=== PATIENT | female | born 1980 ===

== ENCOUNTER → 2020-04-02 14:29 | Outpatient (BNVA) | payer OTHER, SELFPAY | PROVIDERS: PCP Internal Medicine; Referring Provider Internal Medicine; Visit Provider Urology | DX: R31.29 Other microscopic hematuria (principal) | CPT/HCPCS: 81002; 99212 ==

== ENCOUNTER 2020-11-18 11:50 | Outpatient (REF) | payer OTHER, SELFPAY ==
--- NOTE | ~2020-11-18 | XR_ITS ---
EXAMINATION: LEFT FOOT AND RIGHT FINGERS CLINICAL INFORMATION: Pain. COMPARISON: None TECHNIQUE: Left foot 3 views. Right finger 3 views. FINDINGS: Left foot: There is no visible acute fracture, dislocation or subluxation seen. The ankle mortise and subtalar joints are normal. Right fingers: There is no visible acute fracture, dislocation or soft tissue amount. Visualized bone and the joint spaces are maintained normal. Especially there is no abnormality involving the fourth digit. XR/XR foot LT min 3V IMPRESSION: Unremarkable right hand/fourth digit. Unremarkable left foot exam.
--- NOTE | ~2020-11-18 | XR_ITS ---
EXAMINATION: LEFT FOOT AND RIGHT FINGERS CLINICAL INFORMATION: Pain. COMPARISON: None TECHNIQUE: Left foot 3 views. Right finger 3 views. FINDINGS: Left foot: There is no visible acute fracture, dislocation or subluxation seen. The ankle mortise and subtalar joints are normal. Right fingers: There is no visible acute fracture, dislocation or soft tissue amount. Visualized bone and the joint spaces are maintained normal. Especially there is no abnormality involving the fourth digit. XR/XR finger RT min 2V IMPRESSION: Unremarkable right hand/fourth digit. Unremarkable left foot exam.
== END 2020-11-18 11:51 | disposition home or self-care (01) ==
LOC: HO.HMGCX 11:50
PROVIDERS: PCP Internal Medicine; Visit Provider Hospitalist
DX: M79.644 Pain in right finger(s) (principal); M79.672 Pain in left foot
CPT/HCPCS: 73140; 73630

== ENCOUNTER 2020-12-31 07:04 | Emergency (ER) | payer OTHER, SELFPAY ==
--- NOTE | ~2020-12-31 | XR_ITS ---
EXAMINATION: XR CHEST CLINICAL INFORMATION: Chest pain COMPARISON: Chest radiographs 06/02/2018 TECHNIQUE: Portable upright AP view of the chest was obtained. FINDINGS: The lungs are clear. There is no pneumothorax, airspace consolidation or pleural reaction. The costophrenic sulci are well-defined. The heart is normal in size. The hilar and mediastinal contours are normal. There is a gentle levocurvature lower thoracic spine similar to prior study. XR/XR chest 1V IMPRESSION: Unremarkable examination.
[2020-12-31 07:26] VITALS: BP 95/54; PULSE 60; RESP 18; TEMP 35.9; O2SAT 98; BMI 27.1
--- NOTE | 2020-12-31 08:20 | ED_ITS ---
HPI - Back Pain/Injury General Chief Complaint: Back Pain/Injury Stated Complaint: low back pain Time Seen by Provider: 12/31/20 08:16 History of Present Illness HPI Narrative: This is a 60 years old female presented to the emergency department with complaining of upper back pain intermittently for a month she states the pain got worse when she takes a deep breath, denies any injury denies any other systemic symptoms such as diaphoresis fever nausea vomiting. MD elicited complaint: back pain Pertinent past history: prior back pain Onset (ago): month(s) (1 month) Timing: constant Severity: moderate Quality: burning and sharp Location: thoracic spine Radiation: none Exacerbating factors: none Relieving factors: none Associated symptoms: denies other symptoms Work related injury: No Related Data Home Medications Medication Instructions Recorded Confirmed gabapentin 100 mg capsule 100 mg PO TID 04/02/20 11/18/20 lorazepam 1 mg tablet 1 mg PO BID 04/02/20 11/18/20 norethindrone (contraceptive) 0.35 mg PO 04/02/20 11/18/20 mg tablet topiramate 25 mg tablet 25 mg PO BID 04/02/20 11/18/20 Previous Rx's Medication Instructions Recorded amoxicillin 875 mg-potassium 1 tab PO BID #20 tab 09/09/20 clavulanate 125 mg tablet (Augmentin) famotidine 20 mg tablet (Pepcid) 20 mg PO BID #20 tab 12/31/20 naproxen 500 mg tablet (Naprosyn) 500 mg PO BID PRN #20 tab 12/31/20 Allergies Allergy/AdvReac Type Severity Reaction Status Date / Time No Known Allergies Allergy Unverified 11/18/20 11:41 [No Known Allergies*] Review of Systems Review of Systems: Yes all other systems are reviewed and are negative Constitutional: Constitutional: Reports no additional constitutional complaints Cardiovascular: Cardiovascular: Denies chest pain, Denies chest pain at rest and Denies chest pain with activity Respiratory: Respiratory: Reports no additional respiratory complaints Musculoskeletal: Musculoskeletal: Reports no additional musculoskeletal co mplaints Neurologic: Reports system reviewed and no additional complaints, except as documented PMFSH Past Medical History Attestation statement: The following information was validated with the patient. Social History Social History Alcohol intake: never Smoked in Last 30 Days: No Use of substances other than those prescribed or required for medical reasons: No Advance Directives: No Advance Directives Information Provided: No Patient : No service: No Current occupational status: employed Current occupation: [employer] Physical Exam Vital Signs: Vital Signs: Last Vital Signs Temp 96.6 F L 12/31/20 07:26 Pulse 60 12/31/20 07:26 Resp 18 12/31/20 07:26 BP 95/54 L 12/31/20 07:26 Pulse Ox 98 12/31/20 07:26 Body Mass Index 27.1 Const: Other: Patient looks well and she is not in distress he is sitting in the stretcher General: cooperative Nutritional Appearance: average body habitus Orientation/consciousness: oriented to person, oriented to place, oriented to time and patient oriented x3 Limitations: no limitations HENMT: Head: Yes normal to inspection Ears: hearing grossly normal bilaterally General nose exam: Normal external nose present Face and sinus: Yes normal facial exam Mouth: Normal oral and palatal mucosa present Eyes: General: appearance normal, both eyes and all related structures Pupils: Pupils normal by confrontation EOM: EOMs intact bilaterally Neck: Neck: Yes full ROM Chest: Chest palpation & inspection: normal inspection of the chest Resp: Effort & Inspection: normal respiratory effort Auscultation: clear to auscultation bilaterally Cardio: Jugular venous distension: no JVD Palpation: normal PMI Rate: regular rate Rhythm: regular rhythm GI: Inspection: Yes normal to inspection Palpation (GI): Soft to palpation, not firm and nontender Auscultation: normal bowel sounds Skin: General skin exam: no rashes or lesions noted, elasticity normal, turgor normal and atrophy Rashes: no rashes Neuro: General: oriented to person, oriented to place, oriented to time, patient oriented x3 and gait normal Course Course Course Narrative: PATIENT REMAINED STABLE CLINICALLY, LABS ARE WITHIN NORMAL LIMIT D-DIMER IS NEGATIVE CHEST X-RAY IS UNREMARKABLE, SHE CAN BE DISCHARGED HOME AND FOLLOW-UP WITH A PRIMARY CARE PHYSICIAN OVERALL SHE IS HEALTHY PATIENT NO COMMORBIDITY LOW RISK PATIENT MDM - Back Pain/Injury Lab Data Result diagrams: 12/31/20 09:00 12/31/20 09:00 Labs: Lab Results 12/31/20 12/31/20 12/31/20 Range/Units 08:19 08:19 08:59 WBC (4.8-10.8) X10*3/uL RBC (4.20-5.50) X10*6/uL Hgb (12.0-16.0) g/dl Hct (37-47) % MCV (80-98) fL MCH (27.0-33.0) pg MCHC (31.0-35.0) g/dl RDW (11.0-16.0) % Plt Count (160-400) X10*3/uL MPV (9.4-12.3) fL Immature Gran % (Auto) (0.0-0.4) % Neut % (Auto) (45-73) % Lymph % (Auto) (20-40) % [place] % (Auto) (2-11) % Eos % (Auto) (0-4) % Baso % (Auto) (0-2) % Lymph # (Auto) (1.2-4.9) X10*3/uL [place] # (Auto) (0.1-1.2) X10*3/uL Eos # (Auto) (0.0-0.4) X10*3/uL Baso # (Auto) (0.0-0.2) X10*3/uL Abs Immat Gran (auto) (0.00-0.03) X10*3/uL Absolute Neuts (auto) (2.0-8.3) X10*3/uL Absolute Nucleated RBC (0.0-0.012) X10*3/uL Nucleated RBC % (auto) (0.0-0.2) /100WBC D-Dimer < 200 NG/ML Sodium (135-145) mmol/L Potassium (3.3-5.1) mmol/L Chloride (96-108) mmol/L Carbon Dioxide (22-29) mmol/L Anion Gap (12-20) BUN (9-16) mg/dL Creatinine (0.5-1.4) mg/dL Estim Creat Clear Calc Estimated GFR Random Glucose (60-115) mg/dL Calcium (8.4-10.2) mg/dL Total Bilirubin (0.0-1.0) mg/dL AST (5-31) U/L ALT (0-31) U/L Alkaline Phosphatase (39-117) U/L Troponin I High Sens (<3.5-17.0) ng/L Total Protein (6.5-8.0) g/dL Albumin (3.5-5.0) g/dL Urine Color YELLOW Urine Appearance CLEAR Urine pH 6.0 (5.0-8.0) Ur Specific [place] 1.025 (1.005-1.025) Urine Protein NEG (NEG-TRACE) MG/DL Urine Glucose (UA) NEG (NEG) MG/DL Urine Ketones NEG (NEG) MG/DL Urine Blood 1+ H (NEG) Urine Nitrite NEG (NEG) Ur Leukocyte Esterase NEG (NEG) Urine RBC 0-2 (0) /HPF Urine WBC 0-2 (0-4) /HPF Ur Squamous Epith Cells 1+ /LPF Urine Bacteria TRACE /LPF Urine Yeast TRACE /HPF Urine Test NEGATIVE (NEGATIVE) 12/31/20 12/31/20 12/31/20 Range/Units 09:00 09:00 09:00 WBC 6.3 (4.8-10.8) X10*3/uL RBC 4.43 (4.20-5.50) X10*6/uL Hgb 13.3 (12.0-16.0) g/dl Hct 39.9 (37-47) % MCV 90.1 (80-98) fL MCH 30.0 (27.0-33.0) pg MCHC 33.3 (31.0-35.0) g/dl RDW 12.0 (11.0-16.0) % Plt Count 193 (160-400) X10*3/uL MPV 11.2 (9.4-12.3) fL Immature Gran % (Auto) 0.3 (0.0-0.4) % Neut % (Auto) 55.5 (45-73) % Lymph % (Auto) 36.0 (20-40) % [place] % (Auto) 6.4 (2-11) % Eos % (Auto) 1.3 (0-4) % Baso % (Auto) 0.5 (0-2) % Lymph # (Auto) 2.3 (1.2-4.9) X10*3/uL [place] # (Auto) 0.4 (0.1-1.2) X10*3/uL Eos # (Auto) 0.1 (0.0-0.4) X10*3/uL Baso # (Auto) 0.0 (0.0-0.2) X10*3/uL Abs Immat Gran (auto) 0.02 (0.00-0.03) X10*3/uL Absolute Neuts (auto) 3.5 (2.0-8.3) X10*3/uL Absolute Nucleated RBC 0.000 (0.0-0.012) X10*3/uL Nucleated RBC % (auto) 0.0 (0.0-0.2) /100WBC D-Dimer NG/ML Sodium 139 (135-145) mmol/L Potassium 4.7 (3.3-5.1) mmol/L Chloride 107 (96-108) mmol/L Carbon Dioxide 23 (22-29) mmol/L Anion Gap 14 (12-20) BUN 8 L (9-16) mg/dL Creatinine 0.73 (0.5-1.4) mg/dL Estim Creat Clear Calc 93.9 Estimated GFR > 60 Random Glucose 83 (60-115) mg/dL Calcium 9.6 (8.4-10.2) mg/dL Total Bilirubin 0.6 (0.0-1.0) mg/dL AST 24 (5-31) U/L ALT 15 (0-31) U/L Alkaline Phosphatase 50 (39-117) U/L Troponin I High Sens < 3.5 (<3.5-17.0) ng/L Total Protein 7.3 (6.5-8.0) g/dL Albumin 4.4 (3.5-5.0) g/dL Urine Color Urine Appearance Urine pH (5.0-8.0) Ur Specific [place] (1.005-1.025) Urine Protein (NEG-TRACE) MG/DL Urine Glucose (UA) (NEG) MG/DL Urine Ketones (NEG) MG/DL Urine Blood (NEG) Urine Nitrite (NEG) Ur Leukocyte Esterase (NEG) Urine RBC (0) /HPF Urine WBC (0-4) /HPF Ur Squamous Epith Cells /LPF Urine Bacteria /LPF Urine Yeast /HPF Urine Test (NEGATIVE) Imaging Data Chest x-ray: Radiologist's impression: XR CHEST CLINICAL INFORMATION: Chest pain COMPARISON: Chest radiographs 06/02/2018 TECHNIQUE: Portable upright AP view of the chest was obtained. FINDINGS: The lungs are clear. There is no pneumothorax, airspace consolidation or pleural reaction. The costophrenic sulci are well-defined. The heart is normal in size. The hilar and mediastinal contours are normal. There is a gentle levocurvature lower thoracic spine similar to prior study. XR/XR chest 1V IMPRESSION: Unremarkable examination. ? Dictated By: SEJAL DUARTE MD Signed By: <Electronically signed by SEJAL DUARTE MD in OV> 12/31/20 0970 Discharge Plan Discharge Clinical Impression: Back pain Patient Disposition: Home, Self-Care Instructions: Back Pain (ED) Prescriptions: New naproxen [Naprosyn] 500 mg tablet 500 mg PO BID PRN (Reason: pain) Qty: 20 RF: 0 famotidine [Pepcid] 20 mg tablet 20 mg PO BID Qty: 20 RF: 0 No Action amoxicillin-pot clavulanate [Augmentin] 875-125 mg tablet 1 tab PO BID Qty: 20 RF: 0 norethindrone (contraceptive) 0.35 mg tablet PO RF: 0 lorazepam 1 mg tablet 1 mg PO BID RF: 0 gabapentin 100 mg capsule 100 mg PO TID RF: 0 topiramate 25 mg tablet 25 mg PO BID RF: 0 Referrals: Gopal Angel MD [Primary Care Provider] - 2 days
[2020-12-31 08:29] LABS: Glucose Urine UA NEG (NEG); Leukocyte Esterase Urine NEG (NEG); Nitrite Urine NEG (NEG); Specific Gravity - Urine 1.025 (1.005-1.025); UACC Culture Trigger NO; Urine Blood 1+ (NEG); Urine Ketones NEG (NEG); Urine Protein NEG (NEG-TRACE)
[2020-12-31 08:31] LABS: Appearance Urine CLEAR; Color Urine YELLOW; UPreg QC Valid YES; Urine Pregnancy NEGATIVE (NEGATIVE)
[2020-12-31 08:41] LABS: Bacteria Urine TRACE /LPF; RBC Urine 0-2 /HPF (0); Squamous Epithelial Cell Urine 1+ /LPF; WBC Urine 0-2 /HPF (0-4)
[2020-12-31 09:05] LABS: MANUAL DIFF FLAG NO
[2020-12-31 09:09] LABS: Basophils Percent Auto 0.5 % (0-2); Eosinophils Absolute Auto 0.1 X10*3/uL (0.0-0.4); Eosinophils Percent Auto 1.3 % (0-4); Hematocrit 39.9 % (37-47); Hemoglobin 13.3 g/dl (12.0-16.0); Imm Gran Abs Auto 0.02 X10*3/uL (0.00-0.03); Imm Gran Pct Auto 0.3 % (0.0-0.4); Lymphocytes Absolute Auto 2.3 X10*3/uL (1.2-4.9); Mean Corpuscular HGB Conc 33.3 g/dl (31.0-35.0); Mean Corpuscular Volume 90.1 fL (80-98); Mean Platelet Volume 11.2 fL (9.4-12.3); Monocytes Absolute Auto 0.4 X10*3/uL (0.1-1.2); Monocytes Percent Auto 6.4 % (2-11); Neutrophils Absolute Auto 3.5 X10*3/uL (2.0-8.3); Neutrophils Percent Auto 55.5 % (45-73); Platelet Count 193 X10*3/uL (160-400); Red Blood Count 4.43 X10*6/uL (4.20-5.50); White Blood Count 6.3 X10*3/uL (4.8-10.8)
[2020-12-31 09:17] LABS: D Dimer < 200 NG/ML
[2020-12-31 09:32] LABS: Alanine Aminotransferase 15 U/L (0-31); Albumin Level 4.4 g/dL (3.5-5.0); Alkaline Phosphatase 50 U/L (39-117); Anion Gap 14 (12-20); Aspartate Amino Transferase 24 U/L (5-31); Bilirubin Total 0.6 mg/dL (0.0-1.0); Blood Urea Nitrogen 8 mg/dL (9-16); Calcium 9.6 mg/dL (8.4-10.2); Carbon Dioxide 23 mmol/L (22-29); Chloride 107 mmol/L (96-108); Creatinine Clr Calc Pharmacy 93.9; Estimated Glomerular Filt Rate > 60; Glucose Random 83 mg/dL (60-115); Potassium 4.7 mmol/L (3.3-5.1); Sodium 139 mmol/L (135-145); Total Protein 7.3 g/dL (6.5-8.0)
[2020-12-31 09:34] LABS: Troponin-I High Sensitivity < 3.5 ng/L (<3.5-17.0)
== END 2020-12-31 10:00 | disposition home or self-care (01) ==
PROVIDERS: Emergency Provider Emergency Medicine; PCP Internal Medicine
DX: M54.6 Pain in thoracic spine (principal)
CPT/HCPCS: 36415; 71045; 80053; 81001; 81025; 84484; 85025; 85379; 99284

== ENCOUNTER 2021-08-30 08:03 | Emergency (ER) | payer OTHER, SELFPAY ==
--- NOTE | ~2021-08-30 | US_ITS ---
EXAMINATION: US ABDOMEN LIMITED CLINICAL INFORMATION: Right upper quadrant pain. COMPARISON: None TECHNIQUE: Real-time imaging of the right upper quadrant abdominal viscera. FINDINGS: PANCREAS: Normal. LIVER: Normal. The liver is normal in size. The liver contour is normal. Parenchymal echogenicity is normal. No focal hepatic lesion. There is no intrahepatic biliary duct dilatation seen. GALLBLADDER: There is a 4 mm echogenic density adjacent to the wall the gallbladder. This does not move or shadow and is more suggestive of a small gallbladder wall polyp than stone. The gallbladder is otherwise normal. The gallbladder wall does not appear thickened. There is no gallbladder wall edema or pericholecystic fluid. COMMON BILE DUCT: Normal in caliber measuring 0.3 cm in diameter. RIGHT KIDNEY: Normal. No hydronephrosis. No renal calculi or focal parenchymal lesions. The kidney measures 9.8 cm in maximum dimension. FREE FLUID: None. US/US abdomen limited IMPRESSION: Probable 4 mm gallbladder wall polyp.
[2021-08-30 08:10] VITALS: BP 106/65; PULSE 70; RESP 16; TEMP 37.1; O2SAT 100; BMI 25.9
--- NOTE | 2021-08-30 09:20 | ED_ITS ---
HPI - Abdominal Pain General Chief Complaint: Abdominal Pain Stated Complaint: abd pain/diarrhea/fever Time Seen by Provider: 08/30/21 09:04 Source: patient Mode of arrival: ambulatory Limitations: no limitations History of Present Illness HPI narrative: Patient is a 41-year-old female with a past medical history gastritis presents emergency department today for evaluation of epigastric and right upper quadrant pain for 2 weeks. It is intermittent in nature, made worse by lying flat or after eating. She has typically been eating 1 meal a day due to pain. It is described as pinching and aching and radiates to her back at times. She is experiencing nausea but no vomiting. Intermittent episodes of diarrhea. Denies a history of similar have occurred in the past. 3-4 years ago she had an endoscopy which revealed ?stomach inflammation? and she was taking omeprazole but has since stopped taking this medication. Denies fevers, chills, sore throat, cough, shortness of breath difficulty breathing, chest pain, palpitations, lower abdominal pain, dysuria, urinary frequency/urgency/hesitancy, hematuria, abnormal vaginal discharge, possibility of . Related Data Home Medications Medication Instructions Recorded Confirmed gabapentin 100 mg capsule 100 mg PO TID 04/02/20 11/18/20 lorazepam 1 mg tablet 1 mg PO BID 04/02/20 11/18/20 norethindrone (contraceptive) 0.35 mg PO 04/02/20 11/18/20 mg tablet topiramate 25 mg tablet 25 mg PO BID 04/02/20 11/18/20 Previous Rx's Medication Instructions Recorded amoxicillin 875 mg-potassium 1 tab PO BID #20 tab 09/09/20 clavulanate 125 mg tablet (Augmentin) famotidine 20 mg tablet (Pepcid) 20 mg PO BID #20 tab 12/31/20 naproxen 500 mg tablet (Naprosyn) 500 mg PO BID PRN #20 tab 12/31/20 cefuroxime axetil 500 mg tablet 500 mg PO BID 5 Days #10 tab 08/30/21 oxycodone 5 mg capsule 5 mg PO Q8H PRN #10 cap 08/30/21 Allergies Allergy/AdvReac Type Severity Reaction Status Date / Time No Known Allergies Allergy Unverified 11/18/20 11:41 [No Known Allergies*] Review of Systems Review of Systems Constitutional : No Weight loss, No Fever, No Chills ENT/Mouth :? No sore throat, No Rhinorrhea Eyes: No Swelling, No Redness Cardiovascular : No Chest Pain, No SOB, No Edema Respiratory : No Cough, No Sputum, No Wheezing Gastrointestinal : Positive Nausea, no Vomiting, positive Diarrhea, positive abdominal pain, No Hematochezia, No Melena Genitourinary : No Dysuria, No Urinary Frequency, No Hematuria, No Urgency? Musculoskeletal : No joint pain, No Myalgias, No Joint Swelling Skin : No Skin Lesions, No rash Neuro : No Weakness, No Numbness, No Dizziness, No Headache Psych : No Anxiety/Panic, No Depression Heme/Lymph: No Bruising, No Lymphadenopathy Endocrine : No Polyuria, No Polydipsia Yes all other systems are reviewed and are negative [facility] Past Medical History Attestation statement: The following information was validated with the patient. Source: old records reviewed Medical History No known health problems Social History Social History Alcohol intake: never Advance Directives: No Advance Directives Information Provided: No Patient : No service: No Current occupational status: employed Current occupation: [employer] Physical Exam ED Vital Signs: Vital Signs - 24 hr 08/30/21 08:10 Temperature 98.7 F Pulse Rate 70 Respiratory Rate 16 Blood Pressure 106/65 Pulse Oximetry 100 BMI result Body Mass Index 25.9 Vital signs have been reviewed as normal and appeared to be correct. Blood pressure normal.? Heart rate normal.? Respiration rate normal. Temperature normal.? Oxygen saturation normal. Appearance: Alert.?Oriented to person, place and time. No acute distress.?Normal affect. Eyes: Pupils equal, round and reactive to light.? ENT: Pharynx normal.?? Neck: Normal inspection.? Neck supple.?? CVS: Heart sounds normal. Normal heart rate and rhythm.? Pulses normal.?? Respiratory: No respiratory distress.? Lung sounds clear to auscultation bilaterally?? Abdomen: Soft with right upper quadrant and epigastric tenderness to palpation. Normoactive bowel sounds. No pulsatile mass.?? Skin: Skin warm and dry.? Normal skin color.? Normal skin turgor.?? Extremities: No lower extremity edema.? Neuro: Moves all extremities spontaneously. Sensation intact bilaterally. CN II- XII intact. No focal neuro deficits. Ambulates with normal steady gait. Course Course Course Narrative: Patient is a 41-year-old female being evaluated for right upper quadrant/epigastric pain. Will obtain CBC, CMP and lipase in addition to ultrasound of right upper quadrant to evaluate liver and gallbladder. History and physical exam not consistent with GI perforation, GI bleed, AAA, aortic dissection, ectopic , DKA. Not consistent with strangulated hernia, bowel obstruction, pulmonary embolism, mesenteric ischemia, myocardial infarction, ovarian torsion. Disposition will be pending results. Reevaluation(s) Reevaluation #1: Urinalysis reveals 2+ blood, 10-14 RBC, 1+ leuk esterase, bacteria 2+, however there is 3+ squamous epithelial cells, will treat with cefuroxime for urinary tract infection. Urine test is negative. CBC, CMP and lipase are all normal. Ultrasound reveals a probable 4 mm gallbladder wall polyp, [facility]; Dr. Hunt, who recommends outpatient follow-up in 2 weeks. Discussed findings with patient, reviewed plan of care for discharge home and outpatient follow-up with surgery, discussed reasons to return back to the emergency department, pain management with Tylenol and ibuprofen as needed, oxycodone for severe pain. Time: 11:27 [facility] - Abdominal Pain Medical Records Attestation: I reviewed the patient's medical records. Lab Data Attestation: I reviewed the patient's lab results. Result diagrams: 08/30/21 10:11 08/30/21 10:11 Labs: Lab Results 08/30/21 08/30/21 08/30/21 Range/Units 09:21 09:21 10:11 WBC 5.4 (4.8-10.8) X10*3/uL RBC 4.34 (4.20-5.50) X10*6/uL Hgb 13.1 (12.0-16.0) g/dl Hct 38.2 (37.0-47.0) % MCV 88.0 (80.0-98.0) fL MCH 30.2 (27.0-33.0) pg MCHC 34.3 (31.0-35.0) g/dl RDW 11.4 (11.0-16.0) % Plt Count 180 (160-400) X10*3/uL MPV 10.4 (9.4-12.3) fL Absolute Nucleated RBC 0.000 (0.0-0.012) X10*3/uL Nucleated RBC % (auto) 0.0 (0.0-0.2) /100WBC Sodium (135-145) mmol/L Potassium (3.3-5.1) mmol/L Chloride (96-108) mmol/L Carbon Dioxide (22-29) mmol/L Anion Gap (12-20) BUN (9-16) mg/dL Creatinine (0.5-1.4) mg/dL Estim Creat Clear Calc Estimated GFR Random Glucose (60-115) mg/dL Calcium (8.4-10.2) mg/dL Total Bilirubin (0.0-1.0) mg/dL Direct Bilirubin (0.0-0.5) mg/dL AST (5-31) U/L ALT (0-31) U/L Alkaline Phosphatase (39-117) U/L Total Protein (6.5-8.0) g/dL Albumin (3.5-5.0) g/dL Lipase (8-78) U/L Urine Color YELLOW Urine Appearance CLEAR Urine pH 5.5 (5.0-8.0) Ur Specific [place] 1.020 (1.005-1.025) Urine Protein NEG (NEG-TRACE) MG/DL Urine Glucose (UA) NEG (NEG) MG/DL Urine Ketones NEG (NEG) MG/DL Urine Blood 2+ H (NEG) Urine Nitrite NEG (NEG) Ur Leukocyte Esterase 1+ H (NEG) Urine RBC 10-14 H (0) /HPF Urine WBC 0-2 (0-4) /HPF Ur Squamous Epith Cells 3+ /LPF Urine Bacteria 2+ /LPF Urine Test NEGATIVE (NEGATIVE) 08/30/21 Range/Units 10:11 WBC (4.8-10.8) X10*3/uL RBC (4.20-5.50) X10*6/uL Hgb (12.0-16.0) g/dl Hct (37.0-47.0) % MCV (80.0-98.0) fL MCH (27.0-33.0) pg MCHC (31.0-35.0) g/dl RDW (11.0-16.0) % Plt Count (160-400) X10*3/uL MPV (9.4-12.3) fL Absolute Nucleated RBC (0.0-0.012) X10*3/uL Nucleated RBC % (auto) (0.0-0.2) /100WBC Sodium 139 (135-145) mmol/L Potassium 4.5 (3.3-5.1) mmol/L Chloride 107 (96-108) mmol/L Carbon Dioxide 25 (22-29) mmol/L Anion Gap 12 (12-20) BUN 9 (9-16) mg/dL Creatinine 0.75 (0.5-1.4) mg/dL Estim Creat Clear Calc 88.7 Estimated GFR > 60 Random Glucose 86 (60-115) mg/dL Calcium 9.3 (8.4-10.2) mg/dL Total Bilirubin 0.2 (0.0-1.0) mg/dL Direct Bilirubin < 0.2 (0.0-0.5) mg/dL AST 30 (5-31) U/L ALT 22 (0-31) U/L Alkaline Phosphatase 58 (39-117) U/L Total Protein 7.1 (6.5-8.0) g/dL Albumin 4.4 (3.5-5.0) g/dL Lipase 23 (8-78) U/L Urine Color Urine Appearance Urine pH (5.0-8.0) Ur Specific [place] (1.005-1.025) Urine Protein (NEG-TRACE) MG/DL Urine Glucose (UA) (NEG) MG/DL Urine Ketones (NEG) MG/DL Urine Blood (NEG) Urine Nitrite (NEG) Ur Leukocyte Esterase (NEG) Urine RBC (0) /HPF Urine WBC (0-4) /HPF Ur Squamous Epith Cells /LPF Urine Bacteria /LPF Urine Test (NEGATIVE) Imaging Data US - abdomen: Radiologist's impression: FINDINGS: PANCREAS: Normal. LIVER: Normal. The liver is normal in size. The liver contour is normal. Parenchymal echogenicity is normal. No focal hepatic lesion. There is no intrahepatic biliary duct dilatation seen. GALLBLADDER: There is a 4 mm echogenic density adjacent to the wall the gallbladder. This does not move or shadow and is more suggestive of a small gallbladder wall polyp than stone. The gallbladder is otherwise normal. The gallbladder wall does not appear thickened. There is no gallbladder wall edema or pericholecystic fluid. COMMON BILE DUCT: Normal in caliber measuring 0.3 cm in diameter. RIGHT KIDNEY: Normal. No hydronephrosis. No renal calculi or focal parenchymal lesions. The kidney measures 9.8 cm in maximum dimension. FREE FLUID: None. US/US abdomen limited IMPRESSION: Probable 4 mm gallbladder wall polyp. Discharge Plan Discharge Clinical Impression: Urinary tract infection, Polyp of gallbladder Patient Disposition: Home, Self-Care Instructions: Urinary Tract Infection in Women (ED) Additional Instructions: You're being treated for urinary tract infection with cefuroxime, please complete complete course this antibiotic. The ultrasound performed today revealed a gallbladder wall polyp, for this you can use ibuprofen 200 mg, 3 ta blets (600mg) every 6-8 hours as needed for pain, in addition to Tylenol 500 mg, 2 tablets (1,000mg) every 4-6 hours as needed for pain, but not to exceed 3 doses daily (3,000mg).? If the Tylenol/ibuprofen is not working for your pain you may use the oxycodone, this is a narcotic and should be used with caution as it can be addictive, it may make you drowsy, and can cause constipation you should not drive or work while taking this medication. Please contact the surgery office to schedule a follow-up visit within 2 weeks. You may return to the emergency department with any new or worsening symptoms or concerns. Prescriptions: New cefuroxime axetil 500 mg tablet 500 mg PO BID 5 Days Qty: 10 0RF oxycodone 5 mg capsule 5 mg PO Q8H PRN (Reason: pain) Qty: 10 0RF No Action naproxen [Naprosyn] 500 mg tablet 500 mg PO BID PRN (Reason: pain) Qty: 20 0RF famotidine [Pepcid] 20 mg tablet 20 mg PO BID Qty: 20 0RF amoxicillin-pot clavulanate [Augmentin] 875-125 mg tablet 1 tab PO BID Qty: 20 0RF norethindrone (contraceptive) 0.35 mg tablet PO 0RF lorazepam 1 mg tablet 1 mg PO BID 0RF gabapentin 100 mg capsule 100 mg PO TID 0RF topiramate 25 mg tablet 25 mg PO BID 0RF Referrals: Alok Hunt MD [Physician] - 2 weeks (gallbladder wall polyp 4mm) Interventions: ED Discharge Assessment Last Done: 08/30/21 11:49 Discharge Date/Time: 08/30/21 11:50
[2021-08-30 09:28] LABS: Appearance Urine CLEAR; Color Urine YELLOW; Glucose Urine UA NEG (NEG); Leukocyte Esterase Urine 1+ (NEG); Nitrite Urine NEG (NEG); PH 5.5 (5.0-8.0); UACC Culture Trigger YES; Urine Blood 2+ (NEG); Urine Ketones NEG (NEG); Urine Protein NEG (NEG-TRACE)
[2021-08-30 09:30] LABS: UPreg QC Valid YES; Urine Pregnancy NEGATIVE (NEGATIVE)
[2021-08-30 09:38] LABS: WBC Urine 0-2 /HPF (0-4)
[2021-08-30 09:39] LABS: Bacteria Urine 2+ /LPF; Squamous Epithelial Cell Urine 3+ /LPF
[2021-08-30 10:21] LABS: Hematocrit 38.2 % (37.0-47.0); Hemoglobin 13.1 g/dl (12.0-16.0); Mean Corpuscular HGB Conc 34.3 g/dl (31.0-35.0); Mean Corpuscular Hemoglobin 30.2 pg (27.0-33.0); Mean Platelet Volume 10.4 fL (9.4-12.3); Platelet Count 180 X10*3/uL (160-400); Red Blood Count 4.34 X10*6/uL (4.20-5.50); Red Cell Distribution Width 11.4 % (11.0-16.0); White Blood Count 5.4 X10*3/uL (4.8-10.8)
[2021-08-30 10:40] LABS: Alanine Aminotransferase 22 U/L (0-31); Albumin Level 4.4 g/dL (3.5-5.0); Alkaline Phosphatase 58 U/L (39-117); Anion Gap 12 (12-20); Aspartate Amino Transferase 30 U/L (5-31); Bilirubin Direct < 0.2 mg/dL (0.0-0.5); Bilirubin Total 0.2 mg/dL (0.0-1.0); Blood Urea Nitrogen 9 mg/dL (9-16); Calcium 9.3 mg/dL (8.4-10.2); Carbon Dioxide 25 mmol/L (22-29); Chloride 107 mmol/L (96-108); Creatinine Clr Calc Pharmacy 88.7; Estimated Glomerular Filt Rate > 60; Glucose Random 86 mg/dL (60-115); Lipase 23 U/L (8-78); Potassium 4.5 mmol/L (3.3-5.1); Sodium 139 mmol/L (135-145); Total Protein 7.1 g/dL (6.5-8.0)
== END 2021-08-30 11:50 | disposition home or self-care (01) ==
PROVIDERS: Nurse Practitioner Family; Emergency Provider Emergency Medicine; PCP Internal Medicine
DX: N39.0 Urinary tract infection, site not specified (principal); K82.4 Cholesterolosis of gallbladder; R10.11 Right upper quadrant pain; M54.50 Low back pain, unspecified; Z79.899 Other long term (current) drug therapy
CPT/HCPCS: 36415; 76705; 80048; 80076; 81001; 81025; 83690; 85027; 87086; 99284

== ENCOUNTER → 2021-09-29 13:13 | Outpatient (BNVA) | payer OTHER, SELFPAY | PROVIDERS: PCP Internal Medicine; Referring Provider Internal Medicine; Visit Provider Surgery | DX: K82.4 Cholesterolosis of gallbladder (principal); R10.11 Right upper quadrant pain | CPT/HCPCS: 99202 ==

== ENCOUNTER → 2021-10-19 10:40 | Outpatient (REF) | payer OTHER, SELFPAY ==
--- NOTE | ~2021-10-19 | NM_ITS ---
EXAMINATION: NM BILIARY TRACT WITH ORAL FATTY MEAL CLINICAL INFORMATION: Right upper quadrant pain. Also nausea, GERD, bloating. COMPARISON: No previous biliary scan is available for comparison. Abdominal ultrasound dated 08/30/[address] scan of the abdomen and pelvis dated 06/02/2018 are available for comparison. TECHNIQUE: Serial gamma scintillation camera images were obtained over the abdomen for a total observation period of 127 minutes following the intravenous administration of 5.0 mCi Tc-99m Mebrofenin. FINDINGS: There is good accumulation of activity in the liver by 5 minutes post injection. Biliary activity is visualized by 10 minutes in the gallbladder is well visualized by 20 minutes. Small bowel activity is well visualized by 70 minutes. There is almost complete clearance of activity from the liver at this time. At 70 minutes post Mebrofenin injection, 8 ounces of Ensure-plus Brand was administered orally and an additional 60 minutes of images were obtained. Some gallbladder emptying occurs following ingestion of the fatty meal, but this is minimal. At the end of the study at 1 hour post fatty meal, there is abnormal persistence of activity in the gallbladder but diffuse small bowel activity is well visualized. There is essentially complete clearance of activity from the liver at this time. The calculated gallbladder ejection fraction is 29% (normal gallbladder ejection fraction using Ensure supplement orally is greater than 33%). NM/NM hepatobiliary w pharm IMPRESSION: 1. Visualization of the gallbladder is evidence of a patent cystic duct and strong evidence against the diagnosis of acute cholecystitis. The common bile duct is patent. Liver function appears normal. 2. Poor gallbladder emptying and a low gallbladder ejection fraction are evidence of impaired gallbladder contractility and most likely due to chronic cholecystitis.
== END ==
LOC: HO.NUCMED 10:40
PROVIDERS: Visit Provider Surgery
DX: R10.11 Right upper quadrant pain (principal); K82.4 Cholesterolosis of gallbladder
CPT/HCPCS: 78227; A9537

== ENCOUNTER → 2021-10-25 10:56 | Outpatient (BNVA) | payer OTHER, SELFPAY | PROVIDERS: PCP Internal Medicine; Visit Provider Surgery | DX: K81.1 Chronic cholecystitis (principal) | CPT/HCPCS: 99212 ==

== ENCOUNTER 2021-11-14 07:10 | Day surgery (SDC) | payer OTHER, SELFPAY ==
[2021-11-08 14:02] VITALS: BMI 26.3
--- NOTE | 2021-11-11 09:18 | HO.ANESPROP2 ---
Documented by User: Lydia Pena NP 11/11/21 09:19 HPI - Anesthesia Eval Consult details Narrative: 41yo F for Cholecystectomy Laparoscopic PMFSH Active Problems Active Problems: All Active Problems (Updated 10/25/21 @ 11:38 by Alok Hunt MD) Acute sinusitis (Acute) Finger pain, right (Acute) Left foot pain (Acute) Body aches (Acute) Microscopic hematuria (Acute) Recurrent UTI (Acute) RUQ abdominal pain (Acute) Chronic cholecystitis (Acute) Past Medical History Medical History No known health problems Family History Family History Sister Uterine cancer Surgical History Surgical History History of esophagogastroduodenoscopy (EGD) Social History Social History Alcohol intake: never Patient Tobacco Use Status: Never used Tobacco Use of substances other than those prescribed or required for medical reasons: No Are you DNR?: No Advance Directives: No Advance Directives Information Provided: Yes Recently lost weight without trying: No Nutrition Risks: No Nutritional Risk FDLMP: coming soon service: No Current occupational status: employed Current occupation: [employer] Allergies Allergy/AdvReac Type Severity Reaction Status Date / Time No Known Allergies Allergy Verified 11/14/21 07:31 [No Known Allergies*] Home Medications Medication Instructions Recorded Confirmed Last Taken Type norethindrone (contraceptive) 0.35 mg PO 04/02/20 10/25/21 11/13/21 History mg tablet Exam Exam Date and Time: November 11, 2021 0918 Height,Weight and Vital Signs: Height 5 ft 2 in Weight 65.317 kg Pertinent Lab Results Pertinent Lab Results: Laboratory Tests 08/30/21 08/30/21 10:11 10:11 WBC 5.4 Hgb 13.1 Hct 38.2 Plt Count 180 Sodium 139 Potassium 4.5 Chloride 107 Carbon Dioxide 25 BUN 9 Creatinine 0.75 Assessment and Plan Assessment Anesthesia Assessment: Chart Reviewed Documented by User: Ellyn Castellanos MD 11/14/21 10:05 PMF Past Medical History Medical History No known health problems Family History Family History Sister Uterine cancer Surgical History Surgical History History of esophagogastroduodenoscopy (EGD) History of Problems with Anesthesia: No Social History Social History Alcohol intake: never Patient Tobacco Use Status: Never used Tobacco Use of substances other than those prescribed or required for medical reasons: No Are you DNR?: No Advance Directives: No Advance Directives Information Provided: Yes Recently lost weight without trying: No Nutrition Risks: No Nutritional Risk FDLMP: coming soon service: No Current occupational status: employed Current occupation: [employer] Allergies Allergy/AdvReac Type Severity Reaction Status Date / Time No Known Allergies Allergy Verified 11/14/21 07:31 [No Known Allergies*] Home Medications Medication Instructions Recorded Confirmed Last Taken Type norethindrone (contraceptive) 0.35 mg PO 04/02/20 10/25/21 11/13/21 History mg tablet Exam Airway Mallampati Class: II TM Dist: >3cm Neck ROM: Full Loose/Missing/Broken Teeth: No Heart: RRR Lungs: CTA Assessment and Plan Assessment Anesthesia Assessment: Anesthesia Plan Discussed Final Anesthetic Review History of Problems with Anesthesia: No NPO: Yes ASA Class: II Final Preanesthetic Review: Meds/Allgs Chart Reviewed, Consent Obtained/Reviewed and Anes Risks/Benef Reviewed Patient Risk: Low Procedure Risk: Intermediate Anesthetic Plan Anesthetic Plan: GA Disposition: Standard PACU
[2021-11-14] VITALS (14 sets, daily range): BP systolic 105–131; BP diastolic 64–77; PULSE 56–102; RESP 16–22; TEMP 36.1–36.6; O2SAT 98–100; BMI 25.7
[2021-11-14 07:38] LABS: UPreg QC Valid YES; Urine Pregnancy NEGATIVE (NEGATIVE)
[2021-11-14] MEDS: Acetaminophen 325 MG TABLET 650 MG PO (07:50)
[2021-11-14] MEDS: Lactated Ringers 1,000 ML 100 ML IVCONT (08:08)
--- NOTE | 2021-11-14 09:03 | MHC.SHP ---
Pre-Procedural Eval Section A Date of Service: 11/14/21 The patient is an INPATIENT: No Changes since office visit: Yes Patient answered all questions; No Cold of Flu in the past 2 weeks, No New Medical Problems and No Changes in Medication The History & Physical has been completed within 30 days and I have reviewed it.: Yes Section B Chief Complaint: cholecystitis Allergies: Allergies Allergy/AdvReac Type Severity Reaction Status Date / Time No Known Allergies Allergy Verified 11/14/21 07:31 [No Known Allergies*] Plan Diagnosis/Plan: Unchanged I have reviewed the history and physical and performed a pertinent physical examination on my patient. No changes have occurred unless specified.
--- NOTE | 2021-11-14 10:42 | P.OP_ITS ---
Operative Note Operative Note Date of Service: 11/14/21 Narrative: Preoperative diagnosis: Biliary dyskinesia Postoperative diagnosis: Same Procedure: Laparoscopic cholecystectomy Surgeon: Alok Hunt MD Skilled Nursing Facilities Professional:Sarahi Cavanaugh PA-C, JEFF Vasquez Anesthesia: General endotracheal Indications for procedure: 41-year-old female patient presenting with complaints of abdominal pain in the right upper quadrant associated with fatty food intake. Ultrasound was negative for gallstones however HIDA scan was positive for reduced ejection fraction suggestive of chronic cholecystitis. Operative findings: Normal appearing gallbladder with several small gallstones noted within the gallbladder, possible biliary sludge as well. Specimen: gallbladder Estimated blood loss:< 1 ml Complications: none Procedure details: Patient was brought to the OR and placed in a supine position. After administering general anesthesia the patient's abdomen was prepped with ChloraPrep and draped in a sterile fashion. Local anesthesia consisting of 0.25% Sensorcaine without epinephrine was infiltrated in a periumbilical region. A 5 mm incision was made above the umbilicus in a transverse fashion. The Veress needle was then inserted while elevating abdominal cavity with towel clips. After positive drop test the abdomen was insufflated to a pressure of 15 mm of mercury. The Veress needle was then removed and a 5 mm trocar inserted. The camera was inserted in the abdomen explored. A 12 mm trocar was then placed in the epigastrium. Two 5 mm trocars placed in the right upper quadrant by the metal moulder's assistant. The patient was placed in reverse Trendelenburg positioning and rotated to the left. The gallbladder was grasped with the fundus and retracted cephalad by the metal moulder's assistant. The infundibulum was then grasped and retracted away from the liver bed, also by the metal moulder's assistant. The Dolphin dissected was then used by the surgeon to dissect the peritoneum off the infundibulum to reveal the junction with the cystic duct. Cystic artery was noted slightly medial and posterior to the cystic duct. After obtaining a critical view the cystic duct was doubly clipped and divided. The cystic artery was then doubly clipped and divided. The gallbladder was then dissected off the liver bed using electrocautery with an L hook. Hemostasis was assured all times using the electrocautery. When the gallbladder is completely dissected off the liver bed was placed in an Endo-Catch bag and brought out through the epigastric incision. No gallstones were dropped during the procedure. The gallbladder was sent to pathology for further examination. The abdomen was then re-examined. The liver bed was irrigated and suctioned dry. No bleeding or bile leak could be identified. CO2 was then evacuated and all trocars removed. Fascia was closed at the epigastric incision using a [id number] 0 Polysorb suture. Skin was closed in all incisions using a subcuticular 4 0 Polysorb suture by both the surgeon and metal moulder's assistant. Sterile dressings consisting of Steri-Strips, 2 x 2 gauze, and Tegaderm were then applied. The patient tolerated the procedure well. Sponge instrument and needle counts reported as correct. The patient was transferred to PACU in stable condition.
[2021-11-14] MEDS: ondansetron HCL 4 MG/2 ML VIAL IVPUSH (11:16)
[2021-11-14] MEDS: fentaNYL citrate/PF 100 MCG/2 ML VIAL 50 MCG IVPUSH (11:25)
[2021-11-14] MEDS: oxyCODONE HCl Immed Release 5 MG TABLET PO (11:36)
== END 2021-11-14 13:34 | disposition home or self-care (01) ==
PROVIDERS: Nurse Practitioner; PCP Internal Medicine; Visit Provider Surgery
PROC: 0FT44ZZ Resection of Gallbladder, Percutaneous Endoscopic Approach (ICD-10-PCS; CPT 47562; principal; 2021-11-14 09:10)
DX: K81.1 Chronic cholecystitis (principal); Z80.49 Family history of malignant neoplasm of other genital organs; Z79.899 Other long term (current) drug therapy
CPT/HCPCS: 47562; 81025; 88304; J1100; J1885; J2250; J2405; J2550; J3010

== ENCOUNTER → 2022-03-14 09:48 | Outpatient (BNVA) | payer OTHER, SELFPAY | PROVIDERS: PCP Internal Medicine; Visit Provider Surgery | DX: R19.7 Diarrhea, unspecified (principal); R10.84 Generalized abdominal pain | CPT/HCPCS: 99212 ==

== ENCOUNTER 2022-03-22 06:27 | Outpatient (REF) | payer OTHER, SELFPAY ==
--- NOTE | ~2022-03-22 | CT_ITS ---
EXAMINATION: CT ABDOMEN AND PELVIS WITH CONTRAST CLINICAL INFORMATION: Diarrhea COMPARISON: Previous CT of the abdomen and pelvis May 2018 TECHNIQUE: Multidetector volumetric images were obtained from the superior aspect of the liver through the pubic symphysis following administration 85 mL of Omnipaque 350 intravenous contrast. Sagittal and coronal reformatted images were obtained on the technologist's workstation. Oral contrast: Yes This CT examination was performed using dose optimization techniques as appropriate, variously including the following: *Automated exposure control *Adjustment of mA and/or kV according to patient size (this includes techniques or standardized protocols for targeted exams where dose is matched to indication/reason for exam; i.e. extremities or head) *Use of iterative reconstruction technique DLP: 382 mGy-cm FINDINGS: LUNG BASES: There is a 3 mm peripheral or subpleural left lower lobe nodule axial image 7 series 7. This is stable from 2018 exam. The lung bases are otherwise clear. LIVER, GALLBLADDER, AND BILIARY TREE: The liver is normal in size, shape, and attenuation. Stable liver calcification high in the peripheral right lobe. No focal hepatic lesion or biliary ductal dilatation is present. The gallbladder has been removed. PANCREAS: Unremarkable. SPLEEN: Unremarkable. ADRENAL GLANDS: Unremarkable. KIDNEYS AND URETERS: The kidneys are normal in size, shape, and attenuation. No hydronephrosis, hydroureter, or calculi seen. No perinephric stranding. BLADDER: Unremarkable. GASTROINTESTINAL TRACT: The small and large bowel are unremarkable. The appendix is unremarkable. ABDOMINAL WALL: Small umbilical hernia containing fat. LYMPH NODES: Normal. VASCULAR: Unremarkable. PELVIC VISCERA: There is a 3 cm right ovarian cyst. Uterus and adnexa are otherwise unremarkable. There is a small amount of fluid in the pelvis. OSSEOUS STRUCTURES: Degenerative disc disease at L5-S1. CT/CT abdomen pelvis w IV con IMPRESSION: 3 cm right ovarian cyst and small amount of fluid in the pelvis. Otherwise unremarkable exam. Fleischner guidelines were followed.
[2022-03-22] MEDS: Barium Sulfate Oral (Mocha) 450 ML ORAL.SUSP 900 ML PO (08:49)
[2022-03-22] MEDS: iohexoL 350 MG/ML 100 ML INFUS..BTL 85 ML IV (08:51)
== END 2022-03-22 06:28 | disposition home or self-care (01) ==
LOC: HO.CT 06:27
PROVIDERS: PCP Internal Medicine; Visit Provider Surgery
DX: R10.84 Generalized abdominal pain (principal); R19.7 Diarrhea, unspecified
CPT/HCPCS: 74177; Q9967

== ENCOUNTER → 2022-09-13 15:10 | Outpatient (BNVA) | payer OTHER, SELFPAY | PROVIDERS: PCP Internal Medicine; Visit Provider Surgery | DX: K21.9 Gastro-esophageal reflux disease without esophagitis (principal); Z90.49 Acquired absence of other specified parts of digestive tract; R10.84 Generalized abdominal pain | CPT/HCPCS: 99212 ==

== ENCOUNTER → 2022-09-27 10:25 | Outpatient (BNVA) | payer OTHER, SELFPAY | PROVIDERS: PCP Internal Medicine; Visit Provider Physician Assistant | DX: R10.11 Right upper quadrant pain (principal) | CPT/HCPCS: 99202 ==

== ENCOUNTER 2023-09-20 13:52 | Outpatient (AMB) | payer OTHER, SELFPAY ==
--- NOTE | 2023-09-20 14:17 | A.OFFVIS_ITS ---
Vital Signs 09/20/23 14:23 Height 5 ft 2 in Intake Visit Reasons: Abd pain ? hernia Intake Note: This patient presents for an assessment for abdominal pain, question of hernia. Pt c/o; reports bulge which is more prominent in the evening, reports pain umbilical region. Accompanied by: Self / Same As Patient Allergies No Known Allergies [No Known Allergies*] Allergy (Verified 09/20/23 14:24) HPI HPI Abd pain ? hernia: Details: [age] year old female referred for a question of a hernia. She had undergone laparoscopic cholecystectomy for biliary dyskinesia in 2021. She says that a few weeks thereafter, she had been noticing this reducible mass on her umbilicus. This has persisted. She says she now has discomfort with this especially when wearing jeans. She says that she does a lot of heavy lifting at work in [employer] so this bothers her frequently. She says she wants this repaired. She denies GI complaints otherwise. [facility] Medical History (Updated 09/20/23 @ 14:32 by Jamir Chand MD) Umbilical hernia GERD (gastroesophageal reflux disease) No known health problems Surgical History History of laparoscopic cholecystectomy (11/14/21) History of esophagogastroduodenoscopy (EGD) Family History Sister Uterine cancer Social History Alcohol intake: never Patient Tobacco Use Status: Never used Tobacco service: No Current occupational status: employed Current occupation: [employer] Review of Systems Const Denies chills and Denies fever(s) Card Denies chest pain, Denies dyspnea and Denies dyspnea on exertion Resp Denies cough, Denies dyspnea and Denies dyspnea on exertion GI Denies hematochezia and Denies change in bowel habits Denies hematuria Musc Denies back pain and Denies limited range of motion Neuro Denies focal weakness and Denies convulsions Psych Denies depression and Denies mood swings Physical Exam Const General: comfortable and no acute distress Orientation/consciousness: patient oriented x3 Neck Neck: Yes no lymphadenopathy Resp Auscultation: clear to auscultation bilaterally Cardio Rhythm: regular rhythm GI Other: Reducible umbilical hernia, about 1.5 cm in size Palpation (GI): Soft to palpation, nontender and no guarding Neuro General: patient oriented x3 Assessment & Plan Assessment & Plan (1) Umbilical hernia: Code(s): K42.9 - Umbilical hernia without obstruction or gangrene Category: Medical Plan: She has a reducible umbilical hernia as described above. This is probably from her port site a previous laparoscopic cholecystectomy. I explained to her the technique of repair with possible mesh placement. I reviewed the risks including but not limited to bleeding, infections, bowel injury, recurrence, postop pain, as well as the benefits and alternatives She says that this hernia has been bothering her and she wants to proceed. I also reviewed with her what to expect postoperatively.
== END 2023-09-20 14:35 | disposition home or self-care (01) ==
PROVIDERS: PCP Internal Medicine; Visit Provider Surgery
DX: K42.9 Umbilical hernia without obstruction or gangrene (principal)
CPT/HCPCS: 99213

== ENCOUNTER → 2023-09-20 13:52 | Outpatient (BNVA) | payer OTHER, SELFPAY | PROVIDERS: PCP Internal Medicine; Visit Provider Surgery | DX: K42.9 Umbilical hernia without obstruction or gangrene (principal); K21.9 Gastro-esophageal reflux disease without esophagitis; Z90.49 Acquired absence of other specified parts of digestive tract | CPT/HCPCS: 99212 ==

== ENCOUNTER 2023-10-23 07:47 | Day surgery (SDC) | payer OTHER, SELFPAY ==
--- NOTE | 2023-10-22 10:55 | HO.ANESPROP2 ---
HPI - Anesthesia Eval Consult details Narrative: 43yo F for Hernia Umbilical Reducible with possible mesh PMFSH Active Problems Active Problems: All Active Problems Umbilical hernia (Acute) History of laparoscopic cholecystectomy (Acute 11/14/21) GERD (gastroesophageal reflux disease) (Acute) Generalized postprandial abdominal pain (Acute) Diarrhea (Acute) Acute sinusitis (Acute) Finger pain, right (Acute) Left foot pain (Acute) Body aches (Acute) Microscopic hematuria (Acute) Recurrent UTI (Acute) RUQ abdominal pain (Acute) Chronic cholecystitis (Acute) Past Medical History Medical History Umbilical hernia GERD (gastroesophageal reflux disease) No known health problems Family History Family History Sister Uterine cancer Surgical History Surgical History History of laparoscopic cholecystectomy (11/14/21) History of esophagogastroduodenoscopy (EGD) History of Problems with Anesthesia: No Social History Social History Alcohol intake: never Patient Tobacco Use Status: Never used Tobacco Use of substances other than those prescribed or required for medical reasons: No Are you DNR?: No Advance Directives: No Advance Directives Information Provided: Yes Patient : No service: No Current occupational status: employed Current occupation: [email or web address] Allergies Allergy/AdvReac Type Severity Reaction Status Date / Time No Known Allergies Allergy Verified 10/23/23 09:07 [No Known Allergies*] Exam Height,Weight and Vital Signs: Height 5 ft 2 in Assessment and Plan Assessment Anesthesia Assessment: Chart Reviewed Final Anesthetic Review History of Problems with Anesthesia: No
[2023-10-23] VITALS (7 sets, daily range): BP systolic 99–116; BP diastolic 54–66; PULSE 54–88; RESP 15–17; TEMP 36.8–37.4; O2SAT 99–100; BMI 26.4
[2023-10-23 09:04] LABS: UPreg QC Valid YES; Urine Pregnancy NEGATIVE (NEGATIVE)
--- NOTE | 2023-10-23 10:31 | HO.ANESPROP2 ---
COUNT INCLUDES THE [facility] Active Problems Active Problems: All Active Problems Umbilical hernia (Acute) History of laparoscopic cholecystectomy (Acute 11/14/21) GERD (gastroesophageal reflux disease) (Acute) Generalized postprandial abdominal pain (Acute) Diarrhea (Acute) Acute sinusitis (Acute) Finger pain, right (Acute) Left foot pain (Acute) Body aches (Acute) Microscopic hematuria (Acute) Recurrent UTI (Acute) RUQ abdominal pain (Acute) Chronic cholecystitis (Acute) Past Medical History Medical History Umbilical hernia GERD (gastroesophageal reflux disease) No known health problems Patient : No Family History Family History Sister Uterine cancer Family history of problems with anesthesia: No Surgical History Surgical History History of laparoscopic cholecystectomy (11/14/21) History of esophagogastroduodenoscopy (EGD) History of Problems with Anesthesia: No Social History Social History Alcohol intake: never Patient Tobacco Use Status: Never used Tobacco Use of substances other than those prescribed or required for medical reasons: No Are you DNR?: No Advance Directives: No Advance Directives Information Provided: Yes service: No Current occupational status: employed Current occupation: [employer] Allergies Allergy/AdvReac Type Severity Reaction Status Date / Time No Known Allergies Allergy Verified 10/23/23 09:07 [No Known Allergies*] Active Medications: Current Medications Lactated Ringer's (Lr) 1,000 mls @ 100 mls/hr IVCONT .Q10H ERVIN Exam Height,Weight and Vital Signs: Height 5 ft 2 in Weight 65.589 kg Last Vital Signs Temp 98.2 F 10/23/23 09:10 Pulse 54 10/23/23 09:10 Resp 16 10/23/23 09:10 BP 99/54 L 10/23/23 09:10 Pulse Ox 100 10/23/23 09:10 O2 Del Method Room Air 10/23/23 09:10 Pertinent Lab Results Pertinent Lab Results: Laboratory Tests 10/23/23 08:55 Urine Test NEGATIVE Airway Mallampati Class: II TM Dist: >3cm Neck ROM: Full Heart: RRR Lungs: CTA Assessment and Plan Assessment Anesthesia Assessment: Anesthesia Plan Discussed Final Anesthetic Review Family History of Problems with Anesthesia: No History of Problems with Anesthesia: No ASA Class: II Final Preanesthetic Review: Meds/Allgs Chart Reviewed, Consent Obtained/Reviewed and Anes Risks/Benef Reviewed Patient Risk: Low Procedure Risk: Low Anesthetic Plan Anesthetic Plan: GA Disposition: Standard PACU
[2023-10-23] MEDS: Lactated Ringers 1,000 ML 100 ML IVCONT (11:01)
--- NOTE | 2023-10-23 11:05 | MHC.SHP ---
Pre-Procedural Eval Section A - 24 Hr Update-Section A only Date of Service: 10/23/23 Section B - Complete if H&P > 30 days Chief Complaint: Umbilical hernia without obstruction or gangrene Details of Present Illness: has small umbilical hernia Relevant Family History (Specify if Yes): No Relevant Social History: None Present Medications: see Short Stay Collaborative assessment Medical History: Significant History (GERD ) Allergies: Allergies Allergy/AdvReac Type Severity Reaction Status Date / Time No Known Allergies Allergy Verified 10/23/23 09:07 [No Known Allergies*] Review of Systems Sugical H&P ROS: Negative: Constitution, Cardiovascular, Respiratory, Neurological, Psychiatric, Hem-Onc, Allergic/Immunologic, Gastrointestinal, Genitourinary, Musculoskeletal, Integumentary, Endocrine and Eyes/Ears/Nose/Throat Exam Surgical H&P Exam: Normal: HEENT, Normal: Heart, Normal: Lungs, Normal: Extremities, Normal: Abdomen, Normal: Skin and Normal: Neurological Exam Comment: small umbilical hernia Plan Diagnosis/Plan: Unchanged I have reviewed the history and physical and performed a pertinent physical examination on my patient. No changes have occurred unless specified. Time Spent With Patient Time: Total time managing care of this patient today ____ minutes.
--- NOTE | 2023-10-23 12:07 | W.PM.OPN ---
Operative Note Operative Note Date of Service: 10/23/23 Narrative: Preop diagnosis: Umbilical hernia Postop diagnosis: Umbilical hernia Procedure: Repair of umbilical hernia Surgeon: Jamir Chand MD assistant director of financial aid: GEORGE Sousa The patient is a 43 year old female reducible mass on the umbilicus consistent with an umbilical hernia. She understood the technique of repair with possible mesh. She was aware of the risks, benefits, and alternatives. She was brought to the operating room placed supine under general anesthesia via laryngeal mask airway. The abdomen was prepped and draped in the usual sterile fashion. A surgical time-out was done. The patient received cefazolin 2 g IV preoperatively I infiltrated the planned line of incision with lidocaine 1%. I made a supraumbilical transverse curvilinear incision using blade 15. This was carried down with electrocautery through the full-thickness of the skin subcutaneous fat. We lifted the umbilicus off as a flap I carefully dividing then used Metzenbaum scissors from the rest of the fascia. By doing so was able to visualize the sac. I carefully the hernia from the rest of the umbilicus. Then proceeded to divide attachments of the hernia sac to the fascial edge. Doing so was able to reduce the entire hernia. This was all fat containing. The hernia defect was small and was about probably 7 mm. I therefore decided not to use a mesh. I applied a Oniel clamp on the fascial edge for retraction. I made a [id number] stitch with a Maxon 1 stitch to close the hernia defect The umbilicus was tacked down to the fascia with Polysorb 3-0 stitch to re-create the dimple The subcutaneous layer was reapposed with Polysorb 3-0 interrupted sutures. Skin closure was achieved with Polysorb 4-0 subcuticular running stitch The area was infiltrated with Marcaine 0.5% for postop analgesia. Dressings were applied. The procedure was completed The patient tolerated the procedure well. There were no immediate complications. Initial and final counts of sponges and instruments were correct. Estimated blood loss was about 5 cc The patient was extubated without difficulty and transferred to the recovery room with stable vital signs.
[2023-10-23] MEDS: Acetaminophen 1,000 MG/100 ML PIGGYBACK 400 MG IV (12:41)
== END 2023-10-23 14:19 | disposition home or self-care (01) ==
PROVIDERS: Nurse Practitioner; PCP Internal Medicine; Visit Provider Surgery
PROC: (CPT 49591; principal; 2023-10-23 10:10)
DX: K42.9 Umbilical hernia without obstruction or gangrene (principal); K21.9 Gastro-esophageal reflux disease without esophagitis; Z90.49 Acquired absence of other specified parts of digestive tract
CPT/HCPCS: 49591; 81025; J0131; J0665; J0690; J1100; J2250; J2405; J2704; J3010

== ENCOUNTER → 2023-10-23 07:47 | Outpatient (BNV) | payer OTHER, SELFPAY | PROVIDERS: PCP Internal Medicine; Visit Provider Surgery | DX: K42.9 Umbilical hernia without obstruction or gangrene (principal) | CPT/HCPCS: 49591 ==

== ENCOUNTER 2023-11-05 11:04 | Outpatient (AMB) | payer OTHER, SELFPAY ==
--- NOTE | 2023-11-05 11:39 | A.OFFVIS_ITS ---
Vital Signs 11/05/23 11:46 Weight 144 lb BP 110/61 Blood Pressure Location Rt brachial Position Sitting Pulse 63 Intake Visit Reasons: S/P umbilical hernia Intake Note: This patient presents for a post-op assessment stats post umbilical hernia repair. Patient c/o; reports feeling bloated, reports normal bowel movements, reports no constipation. Surgery date: 10/23/2023 [employer] Required: No Accompanied by: Self / Same As Patient Allergies No Known Allergies [No Known Allergies*] Allergy (Verified 11/05/23 11:47) HPI HPI S/P umbilical hernia: Details: She underwent repair of an umbilical hernia without mesh last 10/23/2023. She is doing well and denies complaints currently. [facility] Medical History Umbilical hernia GERD (gastroesophageal reflux disease) No known health problems Surgical History History of umbilical hernia repair (~10/23/23) History of laparoscopic cholecystectomy (11/14/21) History of esophagogastroduodenoscopy (EGD) Family History Sister Uterine cancer Social History Alcohol intake: never Patient Tobacco Use Status: Never used Tobacco service: No Current occupational status: employed Current occupation: [employer] Review of Systems Const Denies chills and Denies fever(s) Card Denies chest pain, Denies dyspnea and Denies dyspnea on exertion Resp Denies cough, Denies dyspnea and Denies dyspnea on exertion GI Denies hematochezia and Denies change in bowel habits Denies hematuria Musc Denies back pain and Denies limited range of motion Neuro Denies focal weakness and Denies convulsions Psych Denies depression and Denies mood swings Physical Exam Vital Signs: Last Vital Signs Pulse 63 11/05/23 11:46 BP 110/61 11/05/23 11:46 Const General: comfortable and no acute distress Resp Effort & Inspection: normal respiratory effort GI Other: Abdomen soft, hernia repair site on the umbilicus is well healed, not infected and repair is intact Assessment & Plan Assessment & Plan (1) Umbilical hernia: Code(s): K42.9 - Umbilical hernia without obstruction or gangrene Category: Medical Plan: Status post repair without mesh. She is doing very well. Her incision is well healed. The repair site is intact. I advised her to avoid lifting anything more than 20 lb for at least 2 more weeks. She can follow up on a p.r.n. basis. Coding Level of Care Code Global (88358) Diagnoses Umbilical hernia K42.9
[2023-11-05 11:46] VITALS: BP 110/61; PULSE 63
== END 2023-11-05 12:02 | disposition home or self-care (01) ==
PROVIDERS: PCP Internal Medicine; Visit Provider Surgery
DX: K42.9 Umbilical hernia without obstruction or gangrene (principal)
CPT/HCPCS: 99212

== ENCOUNTER → 2023-11-05 11:04 | Outpatient (BNVA) | payer OTHER, SELFPAY | PROVIDERS: PCP Internal Medicine; Visit Provider Surgery | DX: K42.9 Umbilical hernia without obstruction or gangrene (principal); K21.9 Gastro-esophageal reflux disease without esophagitis; Z48.815 Encounter for surgical aftercare following surgery on the digestive system | CPT/HCPCS: 99212 ==

== ENCOUNTER 2023-11-29 12:43 | Outpatient (AMB) | payer OTHER, SELFPAY ==
--- NOTE | 2023-11-29 12:48 | A.OFFVIS_ITS ---
Vital Signs 11/29/23 13:00 Height 5 ft 2 in Weight 144 lb 2 oz BMI 26.4 BP 107/62 Blood Pressure Location Lt brachial Position Sitting Pulse 74 Intake Visit Reasons: umbilical hernia, wound check Intake Note: Patient is seen in office for wound check ,post umbilical hernia repair. 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 She recently underwent repair of this umbilical hernia on 10/23/2023 without mesh. She was fine until yesterday when she began lifting while at work performing her normal functions. The pain is located on both the left and right side of the incision. She denies any bleeding or discharge. She subsequently went home and relaxed continues to feel some pain. She is concerned that she return to work too quickly. [facility] Medical History Umbilical hernia GERD (gastroesophageal reflux disease) No known health problems Surgical History History of umbilical hernia repair (~10/23/23) History of laparoscopic cholecystectomy (11/14/21) History of esophagogastroduodenoscopy (EGD) Family History Sister Uterine cancer Social History Alcohol intake: never Patient Tobacco Use Status: Never used Tobacco service: No Current occupational status: employed Current occupation: [employer] Physical Exam Vital Signs: Last Vital Signs Pulse 74 11/29/23 13:00 BP 107/62 11/29/23 13:00 BMI result Body Mass Index 26.4 Const General: no acute distress Nutritional Appearance: well nourished Orientation/consciousness: patient oriented x3 Limitations: no limitations Resp Effort & Inspection: normal respiratory effort, no audible wheezes, no cough and no respiratory distress GI Inspection: Yes normal to inspection and Yes incision (Well-healed periumbilical incision) Palpation (GI): Soft to palpation, Tenderness to palpation present (GI) periumbilically, no guarding, not rigid, no hernias (No hernia palpable with Valsalva) and no masses Neuro General: patient oriented x3 Assessment & Plan Assessment & Plan (1) Umbilical hernia: Code(s): K42.9 - Umbilical hernia without obstruction or gangrene Category: Medical Qualifiers: Obstruction and gangrene presence: without obstruction or gangrene Qualified Code(s): K42.9 - Umbilical hernia without obstruction or gangrene Plan: Patient returns for re-evaluation after repair of an umbilical hernia. No recurrent hernias identified although it is possible that there is a muscle pull due to her recent lifting. I suggested a week of rest and relaxation. I recommended ibuprofen for pain and warm compresses. She will follow-up in [address] Chand. Coding Level of Care Code Global (90872) Diagnoses Umbilical hernia without obstruction and without gangrene K42.9 Obstruction and gangrene presence: without obstruction or gangrene
[2023-11-29 13:00] VITALS: BP 107/62; PULSE 74; BMI 26.4
== END 2023-11-29 13:10 | disposition home or self-care (01) ==
PROVIDERS: PCP Internal Medicine; Visit Provider Surgery
DX: K42.9 Umbilical hernia without obstruction or gangrene (principal)
CPT/HCPCS: 99212

== ENCOUNTER → 2023-11-29 12:43 | Outpatient (BNVA) | payer OTHER, SELFPAY | PROVIDERS: PCP Internal Medicine; Visit Provider Surgery | DX: K42.9 Umbilical hernia without obstruction or gangrene (principal) | CPT/HCPCS: 99212 ==

== ENCOUNTER 2023-12-05 11:32 | Outpatient (AMB) | payer OTHER, SELFPAY ==
[2023-12-05 11:33] VITALS: BP 114/62; PULSE 67; BMI 26.4
--- NOTE | 2023-12-05 11:33 | MHC.OFFVIS ---
Vital Signs 12/05/23 11:33 Height 5 ft 2 in Weight 144 lb 2 oz BMI 26.4 BP 114/62 Blood Pressure Location Rt brachial Position Sitting Pulse 67 Intake Visit Reasons: 1 wk follow up umbilical hernia, wound check Intake Note: This patient presents for a one week follow-up status post umbilical hernia repair. Patient c/o; reports discomfort, reports all incisions are well healed. 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 She had been doing well and had gone back to work last week but she says she had an episode of pain after she was lifting heavy objects. She was seen by Dr. Hunt and was advised to not go back to work for a full week She seems to be doing much better now. She denies any significant pain. [facility] Medical History Umbilical hernia GERD (gastroesophageal reflux disease) No known health problems Surgical History History of umbilical hernia repair (~10/23/23) History of laparoscopic cholecystectomy (11/14/21) History of esophagogastroduodenoscopy (EGD) Family History Sister Uterine cancer Social History Alcohol intake: never Patient Tobacco Use Status: Never used Tobacco service: No Current occupational status: employed Current occupation: [employer] Review of Systems Const Denies chills and Denies fever(s) Card Denies chest pain, Denies dyspnea and Denies dyspnea on exertion Resp Denies cough, Denies dyspnea and Denies dyspnea on exertion GI Denies hematochezia and Denies change in bowel habits Denies hematuria Musc Denies back pain and Denies limited range of motion Neuro Denies focal weakness and Denies convulsions Psych Denies depression and Denies mood swings Physical Exam Vital Signs: Last Vital Signs Pulse 67 12/05/23 11:33 BP 114/62 12/05/23 11:33 BMI result Body Mass Index 26.4 Const General: comfortable and no acute distress Resp Effort & Inspection: normal respiratory effort GI Other: Umbilical hernia repair site is well healed, not infected, no hematoma, repair intact Palpation (GI): Soft to palpation and not firm Assessment & Plan Assessment & Plan (1) Umbilical hernia: Code(s): K42.9 - Umbilical hernia without obstruction or gangrene Category: Medical Qualifiers: Obstruction and gangrene presence: without obstruction or gangrene Qualified Code(s): K42.9 - Umbilical hernia without obstruction or gangrene Plan: Status post repair without mesh. The incision is well healed. There has no evidence of any recurrence. There has no evidence of any infection She is cleared to return to work starting next week, December 11, 2023 She can follow up with me on a p.r.n. basis. Coding Level of Care Code Global (51139) Diagnoses Umbilical hernia without obstruction and without gangrene K42.9 Obstruction and gangrene presence: without obstruction or gangrene
== END 2023-12-05 11:55 | disposition home or self-care (01) ==
PROVIDERS: PCP Internal Medicine; Visit Provider Surgery
DX: K42.9 Umbilical hernia without obstruction or gangrene (principal)
CPT/HCPCS: 99212

== ENCOUNTER → 2023-12-05 11:32 | Outpatient (BNVA) | payer OTHER, SELFPAY | PROVIDERS: PCP Internal Medicine; Visit Provider Surgery | DX: Z09 Encounter for follow-up examination after completed treatment for conditions other than malignant neoplasm (principal); Z87.19 Personal history of other diseases of the digestive system | CPT/HCPCS: 99212 ==

== ENCOUNTER 2024-01-30 20:02 | Emergency (ER) | payer OTHER, SELFPAY ==
--- NOTE | ~2024-01-30 | XR_ITS ---
EXAMINATION: XR ABDOMEN KUB CLINICAL INDICATION: Abdominal distention and pain. COMPARISON: None available. TECHNIQUE: AP view of the abdomen. FINDINGS: The bowel gas pattern is normal with no evidence of ileus or obstruction. No unusual soft tissue calcifications are noted. The bones are unremarkable. XR/XR KUB IMPRESSION: Unremarkable examination. Electronically signed by: Osmany Loja MD 01/31/2024 03:13 AM EDT RP
[2024-01-30 20:28] VITALS: BP 123/86; PULSE 79; RESP 18; TEMP 37; O2SAT 99; BMI 26.9
--- NOTE | 2024-01-30 20:28 | ED_ITS ---
HPI - General Adult General Chief complaint: General Medical Stated complaint: body 'burning'/pain Time Seen by Provider: 01/31/24 01:28 Source: patient Mode of arrival: ambulatory Limitations: no limitations History of Present Illness ED Provider: Dr. Mathur HPI narrative: patient describes abdominal swelling that is getting worse. She states that her she is not constipated. Onset (ago): week(s) Related Data Previous Rx's ?Medication ?Instructions ?Recorded sucralfate 1 gram tablet 1 g PO QIDACHS 4 weeks #90 tabs 09/27/22 ibuprofen 600 mg tablet 600 mg PO Q6H PRN pain #30 tabs 10/23/23 psyllium seed (sugar) oral powder 1 tsp PO BID #1,254 grams 01/31/24 (Metamucil (sugar) oral powder) Allergies Allergy/AdvReac Type Severity Reaction Status Date / Time No Known Allergies Allergy Verified 01/30/24 20:31 [No Known Allergies*] Review of Systems 2 Review of Systems: Yes all other systems are reviewed and are negative Neurologic: Denies Sensory deficit (Neuro) [facility] Past Medical History Medical History Umbilical hernia GERD (gastroesophageal reflux disease) No known health problems Surgical History History of umbilical hernia repair (~10/23/23) History of laparoscopic cholecystectomy (11/14/21) History of esophagogastroduodenoscopy (EGD) Family History Family History Sister Uterine cancer Social History Social History Alcohol intake: never Patient Tobacco Use Status: Never used Tobacco Advance Directives: No Advance Directives Information Provided: Yes Do you have a plan to hurt others: No Plan service: No Current occupational status: employed Current occupation: [employer] Physical Exam ED Vital Signs: Vital Signs - 24 hr 01/30/24 20:28 Temperature 98.6 F Pulse Rate 79 Respiratory Rate 18 Blood Pressure 123/86 Pulse Oximetry 99 Oxygen Delivery Method Room Air BMI result Body Mass Index 26.9 Const General: healthy appearing Nutritional Appearance: average body habitus Orientation/consciousness: oriented to person and patient oriented x3 Limitations: no limitations HENMT Head: Yes normal to inspection Ears: external ears normal General nose exam: Normal external nose present Mouth: Normal oral and palatal mucosa present and oropharynx normal Throat: Yes posterior oropharynx normal Eyes General: appearance normal, both eyes and all related structures Neck Neck: Yes normal visual inspection Chest Chest palpation & inspection: normal inspection of the chest Resp Auscultation: clear to auscultation bilaterally Cardio Jugular venous distension: no JVD Rate: regular rate Rhythm: regular rhythm Heart sounds: S1 normal heart sound present and S2 normal heart sound present GI Inspection: Yes normal to inspection Palpation (GI): Soft to palpation, nontender and No hepatosplenomegaly present Auscultation: normal bowel sounds General: Yes no CVA tenderness Back/Spine/Pelvis Back: no CVA tenderness Skin General skin exam: no rashes or lesions noted Neuro General: oriented to person and patient oriented x3 Cranial nerves: Yes CN's II-XII intact bilaterally Motor exam (neuro): 5/5 motor strength present throughout Sensory Exam: No Sensory deficit (Neuro) Extrem General: Yes normal to inspection Psych Appearance: grossly normal Course Course Course Narrative: This is an RME done by GEORGE Castilol: Additional HPI, ROS, PE not included below will be deferred to primary provider. 43 year old presenting with concerns of progressive total body aches and pain (9/10) for the past few days. She explains the feeling as a sharp burning and that it is worse in the shower, she cannot even touch her skin without pain. Additionally states it feels like something is inside of her and going to explode Denies sick contacts or recent travel. Appearance: Alert.? Oriented X3.? No acute cardiopulmonary distress distress.? Head: Normocephalic, atraumatic, no step-offs or deformities Neck: Normal inspection.? Neck supple.? CVS: Pulses normal.? Respiratory: No respiratory distress.? Abdomen: Soft and nontender.? Skin: ? Normal skin color. Extremities: 5/5 strength to bilateral upper and lower extremities Neuro: Oriented X 3.? No motor deficit.? No sensory deficit. Reevaluation(s) Reevaluation #1: labs normal, urine normal, xray show a large amount of stool, will treat for constipation Time: 06:06 Medical Decision Making Differential Diagnosis Differential Diagnoses: The differential diagnosis associated with the presentation includes (liver failure, renal failure, edema, constipation) Admission/Observation Consideration of admission/observation: Escalation of care including admission/observation considered (upon arrival patient was considered for admission) Lab Data 01/30/24 20:45 01/30/24 20:45 Labs: Lab Results 01/30/24 01/31/24 Range/Units 20:45 05:14 WBC 10.1 (4.8-10.8) X10*3/uL RBC 3.95 L (4.20-5.50) X10*6/uL Hgb 12.3 (12.0-16.0) g/dl Hct 34.6 L (37.0-47.0) % MCV 87.6 (80.0-98.0) fL MCH 31.1 (27.0-33.0) pg MCHC 35.5 H (31.0-35.0) g/dl RDW 12.4 (11.0-16.0) % Plt Count 227 D (160-400) X10*3/uL MPV 9.9 (9.4-12.3) fL Immature Gran % (Auto) 0.2 (0.0-0.4) % Neut % (Auto) 49.0 (45-73) % Lymph % (Auto) 40.5 H (20-40) % Adams % (Auto) 9.0 (2-11) % Eos % (Auto) 0.9 (0-4) % Baso % (Auto) 0.4 (0-2) % Lymph # (Auto) 4.1 (1.2-4.9) X10*3/uL Adams # (Auto) 0.9 (0.1-1.2) X10*3/uL Eos # (Auto) 0.1 (0.0-0.4) X10*3/uL Baso # (Auto) 0.0 (0.0-0.2) X10*3/uL Abs Immat Gran (auto) 0.02 (0.00-0.03) X10*3/uL Absolute Neuts (auto) 4.9 (2.0-8.3) x10*3/uL Absolute Nucleated RBC 0.000 (0.0-0.012) X10*3/uL Nucleated RBC % (auto) 0.0 (0.0-0.2) /100WBC ESR 7 (0-20) MM/HR Sodium 142 (135-145) mmol/L Potassium 3.6 (3.3-5.1) mmol/L Chloride 105 (96-108) mmol/L Carbon Dioxide 29 (22-29) mmol/L Anion Gap 12 (12-20) BUN 9 (9-16) mg/dL Creatinine 0.79 (0.5-1.4) mg/dL Estim Creat Clear Calc 84.0 Estimated GFR > 60 Random Glucose 98 (60-115) mg/dL Calcium 9.6 (8.4-10.2) mg/dL Total Bilirubin 0.3 (0.0-1.0) mg/dL AST 23 (5-31) U/L ALT 26 (0-31) U/L Alkaline Phosphatase 48 (39-117) U/L C-Reactive Protein < 0.10 (< or = 0.50) mg/dL Total Protein 7.2 (6.5-8.0) g/dL Albumin 4.2 (3.5-5.0) g/dL Urine Color Yellow Urine Appearance Clear Urine pH 7.0 (5.0-9.0) Ur Specific [place] 1.010 (1.005-1.025) Urine Protein Negative (Neg-Trace) mg/dL Urine Glucose (UA) Negative (Negative) mg/dL Urine Ketones Negative (Negative) mg/dL Urine Blood Negative (Negative) Urine Nitrite Negative (Negative) Ur Leukocyte Esterase Small (1+) H (Negative) Urine RBC 0-2 (0-2) /HPF Urine WBC 6-10 (0-5) /HPF Ur Squamous Epith Cells 6-10 (0-2) /HPF Urine Bacteria 1+ (None Seen) Hyaline Casts 0-2 (0-2) /LPF Urine Test NEGATIVE (NEGATIVE) Independent Interpretation I performed an independent interpretation of an: Plain X-Ray (constipation) Independent Historian Clinical information obtained from an independent historian. History obtained from or confirmed by: Spouse Tests considered The following testing was considered but not selected: CT of abdomen considered but abdomen is soft non focal Prescription Management I considered prescription management with: Antibiotic (no evidence of infection) Discharge Plan Discharge Clinical Impression: Constipation Patient Disposition: Home, Self-Care Instructions: Constipation (ED) Prescriptions: New Metamucil (sugar) Powder 1 tsp PO BID Qty: 1254 0RF No Action ibuprofen 600 mg tablet 600 mg PO Q6H PRN (Reason: pain) Qty: 30 0RF sucralfate 1 gram tablet 1 g PO QIDACHS 28 Days Qty: 90 0RF Referrals: Gopal Angel MD [Primary Care Provider] - 3 days Print Language: Beninese
[2024-01-30 20:49] LABS: MANUAL DIFF FLAG NO
[2024-01-30 20:54] LABS: Basophils Percent Auto 0.4 % (0-2); Eosinophils Absolute Auto 0.1 X10*3/uL (0.0-0.4); Eosinophils Percent Auto 0.9 % (0-4); Hematocrit 34.6 % (37.0-47.0); Hemoglobin 12.3 g/dl (12.0-16.0); Imm Gran Abs Auto 0.02 X10*3/uL (0.00-0.03); Imm Gran Pct Auto 0.2 % (0.0-0.4); Lymphocytes Absolute Auto 4.1 X10*3/uL (1.2-4.9); Lymphocytes Percent Auto 40.5 % (20-40); Mean Corpuscular HGB Conc 35.5 g/dl (31.0-35.0); Mean Corpuscular Hemoglobin 31.1 pg (27.0-33.0); Mean Corpuscular Volume 87.6 fL (80.0-98.0); Mean Platelet Volume 9.9 fL (9.4-12.3); Monocytes Absolute Auto 0.9 X10*3/uL (0.1-1.2); Neutrophils Absolute Auto 4.9 x10*3/uL (2.0-8.3); Platelet Count 227 X10*3/uL (160-400); Red Blood Count 3.95 X10*6/uL (4.20-5.50); Red Cell Distribution Width 12.4 % (11.0-16.0); White Blood Count 10.1 X10*3/uL (4.8-10.8)
[2024-01-30 21:09] LABS: Alanine Aminotransferase 26 U/L (0-31); Albumin Level 4.2 g/dL (3.5-5.0); Alkaline Phosphatase 48 U/L (39-117); Anion Gap 12 (12-20); Aspartate Amino Transferase 23 U/L (5-31); Bilirubin Total 0.3 mg/dL (0.0-1.0); Blood Urea Nitrogen 9 mg/dL (9-16); C Reactive Protein < 0.10 mg/dL (< or = 0.50); Calcium 9.6 mg/dL (8.4-10.2); Carbon Dioxide 29 mmol/L (22-29); Chloride 105 mmol/L (96-108); Estimated Glomerular Filt Rate > 60; Glucose Random 98 mg/dL (60-115); Potassium 3.6 mmol/L (3.3-5.1); Sodium 142 mmol/L (135-145); Total Protein 7.2 g/dL (6.5-8.0)
[2024-01-30 21:32] LABS: Erythrocyte Sedimentation Rate 7 MM/HR (0-20)
[2024-01-31 05:25] LABS: Appearance Urine Clear; Color Urine Yellow; Glucose Urine UA Negative (Negative); Leukocyte Esterase Urine Small (1+) (Negative); Nitrite Urine Negative (Negative); UMIC TRIGGER UACC YES; Urine Blood Negative (Negative); Urine Ketones Negative (Negative); Urine Protein Negative (Neg-Trace)
[2024-01-31 05:28] LABS: UPreg QC Valid YES; Urine Pregnancy NEGATIVE (NEGATIVE)
[2024-01-31 05:38] LABS: Bacteria Urine 1+ (None Seen); Hyaline Casts Urine 0-2 /LPF (0-2); RBC Urine 0-2 /HPF (0-2); UACC Culture Trigger YES
--- NOTE | 2024-01-31 05:54 | PC.NURSE ---
pt yelling out, laying on the floor. vitals stable, seen by provider and medicated. Pt up ambulating to bathroom with steady gait and vomited po medication. pt walked out with out her discharge papers and refused to wait for anti nausea medication. skin pink warm and dry. pt was seen also yesterday for the same dx of covid. pt was seen yesterday and discharge for the same dx.
[2024-01-31 06:28] VITALS: BP 109/67; PULSE 78; RESP 18; TEMP 36.8; O2SAT 99
[2024-01-31 06:30] VITALS: BP 109/67; PULSE 78; RESP 18; TEMP 36.8; O2SAT 99
== END 2024-01-31 06:31 | disposition home or self-care (01) ==
PROVIDERS: Physician Assistant; Emergency Provider Emergency Medicine; PCP Internal Medicine
DX: K59.00 Constipation, unspecified (principal); R10.9 Unspecified abdominal pain; Z79.899 Other long term (current) drug therapy
CPT/HCPCS: 36415; 74018; 80053; 81001; 81025; 85025; 85652; 86140; 87086; 99283; 99284

== ENCOUNTER 2024-02-11 14:58 | Outpatient (AMB) | payer OTHER, SELFPAY ==
--- NOTE | 2024-02-11 15:06 | MHC.OFFWIV ---
Intake Vital Signs 02/11/24 15:10 Weight 147 lb BP 112/78 Blood Pressure Location Lt brachial Position Sitting Pulse 78 Pulse Source Pulse Oximeter Temp 99.3 F Temp Source Oral Pulse Oximetry (%) 98 Oxygen Delivery Method Room Air Intake Visit Reasons: EP Covid sym/pos at home, need doc note Intake Note: Patient here because she tested positive on sunday w/at home kit. she needs a work note. Patient Tobacco Use Status: Never used Tobacco Allergies No Known Allergies [No Known Allergies*] Allergy (Verified 02/11/24 15:10) Do you need a note to return to daycare/school/sports/work: Yes HPI HPI Comments History of Present Illness Details Patient presents to the walk-in today for sick visit Endorses URI symptoms for last 3 days Took a COVID test at home and it was positive Requesting official COVID test and work note as they are requiring this from her COUNTS INCLUDE 234 BEDS AT THE [facility] Medical History Umbilical hernia GERD (gastroesophageal reflux disease) No known health problems Surgical History History of umbilical hernia repair (~10/23/23) History of laparoscopic cholecystectomy (11/14/21) History of esophagogastroduodenoscopy (EGD) Family History Sister Uterine cancer Social History Alcohol intake: never Patient Tobacco Use Status: Never used Tobacco service: No Current occupational status: employed Current occupation: [employer] Review of Systems Const All systems reviewed & are unremarkable except as noted in HPI and below Physical Exam Vital Signs: Last Vital Signs Temp 99.3 F 02/11/24 15:10 Pulse 78 02/11/24 15:10 BP 112/78 02/11/24 15:10 Pulse Ox 98 02/11/24 15:10 Oxygen Delivery Method Room Air 02/11/24 15:10 General: awake, alert, oriented. Answers questions appropriately. Fully engaged in examination. Skin: warm, dry, intact HEENT: TMs intact bilaterally, no redness. Posterior pharynx without erythema or exudate. Sclera without icterus or injection. Cardiac: External chest normal in appearance. Respiratory: +cough. LSCTAB. Abdomen: without gross distension. Neurological: Oriented to person, place, time and situation. Thought process intact. Psychiatric: Appropriate mood and affect. Good judgment and insight. Assessment & Plan Assessment & Plan (1) URI (upper respiratory infection): Code(s): J06.9 - Acute upper respiratory infection, unspecified Plan URI, no abx warranted. SARS-CoV2/FLU/RSV swab collected, results pending. Patient aware she will be called with results. Rest, drink plenty of fluids, tylenol or motrin as needed. Recommend taking OTC nasal decongestants Work note provided Follow up with pcp or in clinic for any new or worsening symptoms. Go to ER for shortness of breath, chest pain, palpitations, weakness, dizziness. Orders: Orders SARS-CoV2/FLU/RSV Today J06.9 - Acute upper respiratory infection, unspecified Coding Level of Care Code Est Pt Level 3 (97311) Diagnoses URI (upper respiratory infection) J06.9
[2024-02-11 15:10] VITALS: BP 112/78; PULSE 78; TEMP 37.4; O2SAT 98
== END 2024-02-11 15:40 | disposition home or self-care (01) ==
PROVIDERS: PCP Internal Medicine; Visit Provider Registered Nurse Emergency
DX: J06.9 Acute upper respiratory infection, unspecified (principal)
CPT/HCPCS: 99213

== ENCOUNTER 2024-02-11 15:37 | Outpatient (REF) | payer OTHER, SELFPAY ==
[2024-02-12 13:45] LABS: Influenza A PCR NEGATIVE (Negative); Influenza B PCR NEGATIVE (Negative); Resp Syncy Virus RNA Qual PCR NEGATIVE (Negative); SARS COV2 PCR INHOUSE POSITIVE (Negative)
== END 2024-02-11 15:38 | disposition home or self-care (01) ==
LOC: HO.LAB 15:37
PROVIDERS: Visit Provider Registered Nurse Emergency
DX: J06.9 Acute upper respiratory infection, unspecified (principal)
CPT/HCPCS: 0241U

== ENCOUNTER 2024-09-02 14:48 | Outpatient (AMB) | payer OTHER, SELFPAY ==
--- NOTE | 2024-09-02 16:19 | AM.OFFWIN_ITS ---
Intake Vital Signs 09/02/24 16:21 Weight 153 lb BP 110/70 Blood Pressure Location Rt brachial Position Sitting Pulse 71 Pulse Source Pulse Oximeter Temp 98.4 F Temp Source Oral Pulse Oximetry (%) 99 Oxygen Delivery Method Room Air Intake Visit Reasons: EP Eye watering, headaches/drops not helping Intake Note: Patient here for watery eyes, inside of eyes feel sore, headaches that has been present for a couple of months. Patient Tobacco Use Status: Never used Tobacco Allergies No Known Allergies [No Known Allergies*] Allergy (Verified 09/02/24 16:22) Do you need a note to return to daycare/school/sports/work: No HPI HPI Comments History of Present Illness Details This is a 44-year-old female with no stated past medical history presenting for evaluation of watery eyes and intermittent exudates that she notes of the corner of her eyes that has been present for the past 3 months. Patient denies having any fevers, chills, visual changes, flashing lights, floaters, photophobia and she does not wear contacts or glasses for her visual acuity. [facility] Medical History Umbilical hernia GERD (gastroesophageal reflux disease) No known health problems Surgical History History of umbilical hernia repair (~10/23/23) History of laparoscopic cholecystectomy (11/14/21) History of esophagogastroduodenoscopy (EGD) Family History Sister Uterine cancer Social History Alcohol intake: never Patient Tobacco Use Status: Never used Tobacco service: No Current occupational status: employed Current occupation: [employer] Review of Systems Const All systems reviewed & are unremarkable except as noted in HPI and below Reports as per HPI, Reports no additional complaints, Denies chills, Denies fatigue and Denies fever(s) Eyes Reports no additional complaints, Denies blurry vision, Denies change in vision, Denies floaters, Reports irritation, Denies itchy eyes, Denies loss of peripheral vision, Denies seeing flashes, Denies photophobia and Reports other (Watery eyes) ENT Reports no additional complaints Card Reports no additional complaints Resp Reports no additional complaints GI Reports no additional complaints Reports no additional complaints Musc Reports no additional complaints Skin/Breast Reports system reviewed and no additional complaints, except as documented Neuro Reports no additional complaints Psych Reports no additional complaints Endo Reports no additional complaints and Denies fatigue Boogie/Lymph Reports no additional complaints Aller/Immun Reports no additional complaints and Denies itchy eyes Physical Exam Vital Signs: Last Vital Signs Temp 98.4 F 09/02/24 16:21 Pulse 71 09/02/24 16:21 BP 110/70 09/02/24 16:21 Pulse Ox 99 09/02/24 16:21 Oxygen Delivery Method Room Air 09/02/24 16:21 Const General: cooperative, healthy appearing, comfortable, no acute distress, well developed, alert, awake and Physically active; No acute distress Nutritional Appearance: well nourished Orientation/consciousness: patient oriented x3 Limitations: no limitations HEENT Head: Yes normal to inspection and Yes normocephalic Ears: hearing grossly normal bilaterally, external ears normal, TM's normal bilaterally and EAC's normal General nose exam: Normal external nose present Face and sinus: Yes normal facial exam Mouth: Normal oral and palatal mucosa present and moist mucous membranes Teeth and gingiva: dentition normal Eyes Visual Gutierrez: normal visual gutierrez by confrontation Alignment and Position: alignment normal Periorbital: periorbital findings normal Conjunctivae: conjunctival abnormal bilateral conjunctival injection; without discharge and other (watery tearing noted right > left, no photophobia, no exudates) Sclerae: sclerae normal Corneas: corneas normal Pupils: Equal, round and reactive pupils present EOM: EOMs intact bilaterally Direct Ophthalmoscopy: normal light reflex, no photophobia and No photophobia Skin General skin exam: no rashes or lesions noted Neuro General: patient oriented x3 Cranial nerves: Yes Equal, round and reactive pupils present Psych Appearance: grossly normal Mental Status: mental status grossly normal Insight: Good insight present (Psych) Judgement: Good judgement present (Psych) Assessment & Plan Assessment & Plan (1) Watery eyes: Comment: Patient has never had a formal ophthalmologic evaluation. Patient denies having any eye pain or visual changes. Patient will be discharged in encouraged to have a formal ophthalmological evaluation performed. There are no acute findings noted on examination here in the walk-in. Code(s): H04.203 - Unspecified epiphora, bilateral Plan: Patient will pursue formal ophthalmological evaluation within the next 10-14 days. Coding Level of Care Code Est Pt Level 3 (80888) Diagnoses Watery eyes H04.203 Time Spent (min) 20
[2024-09-02 16:21] VITALS: BP 110/70; PULSE 71; TEMP 36.9; O2SAT 99
--- OUTSIDE RECORDS SUMMARY | 2024-09-02 17:38 | XMS_ITS ---
Author Organization [facility] Address [address] [place] [phone] Care Team Providers Care Director Skills Name Role Phone KELVINPRAKASH BloomBHUMIKA Unavailable [phone] Allergies No Known Allergies REASON FOR VISIT Annual Exam Medications Medication SIG (Take, Route, Fr equency, Duration) Notes Start Date End Date Status Flexeril Not-Taking Slynd 4 MG 1 tablet Orally Once a day for 84 days 08/07/2023 Active Social History Sex Assigned At : Social History Observation Description Sex Assigned At Female Vital Signs Blood pressure systolic 100 mm Hg 12/17/19 24 Blood pressure diastolic 68 mm Hg 024 Height 5'2 in 12/17/2023 Weight 143 lbs 12/17/2023 BMI 26.15 kg/m2 12/17/2023 Encounters Encounter Location Date Provider Diagnosis [address] [id number] 12/17/2023 BHUMIKA MCCALL Encounter for gynecological examination (general) (routine) without abnormal findings Z01.419 and Encounter for surveillance of contraceptive pills Z30.41 Assessments Encounter Date Diagnosis (ICD Code) Assessment Notes Treatment Notes Treatment Clinical Notes Section Notes 12/17/2023 Encounter for gynecological examination (general) (routine) without abnormal findings (ICD-10 - Z01.419) Reviewed routine screening, safe sex and condom use. Aware of ASCCP guidelines and self breast awareness. Clt declines referral for routine mammogram since CBE was normal. Reassured clt of low radiation exposure with mammogram imaging, but prefers to hold off for now. Encouraged routine physical with PCP to have routine labs and screening performed. Clt doesn't have appt with PCP for many more months. Will run lipid panel and Hgb A1c in the meantime. Clt to come in next week for lab collection. 12/17/2023 Encounter for surveillance of contraceptive pills (ICD-10 - Z30.41) No CI to continue with Slynd. Refill rx sent x 12 months. RTC if any unwanted side effects or issue 12/17/2023 Other Discussed STI risks, screening, and safe sex Plan Of Treatment Medication Medication Name Sig Start Date Stop Date Notes Slynd 4 MG 1 tablet Orally Once a day for 84 days 08/07/19 24 Treatment Notes Assessment Notes Encounter for gynecological examination (general) (routine) without abnormal findings Reviewed routine screening, safe sex and condom use. Aware of ASCCP guidelines and self breast awareness. Clt declines referral for routine mammogram since CBE was normal. Reassured clt of low radiation exposure with mammogram imaging, but prefers to hold off for now. Encouraged routine physical with PCP to have routine labs and screening performed. Clt doesn't have appt with PCP for many more months. Will run lipid panel and Hgb A1c in the meantime. Clt to come in next week for lab collection. Encounter for surveillance o f contraceptive pills No CI to continue with Slynd. Refill rx sent x 12 months. RTC if any unwanted side effects or issue Other Discussed STI risks, screening, and safe sex Next Appt Details Follow Up: 1 Year, Reason: Progress Notes * Romelia HAIRSTONDOB:08/1979 (43 yo F)Acc No.[id number]:12/17/2023 Progress Notes Patient:?JOHNY ANNA Momochantal newsome Provider:?Bhumika Mccall NP :1980???Age:43 Y???Sex:Female D ate:12/17/2023 Address:[address] [place] [id number] Subjective: * Chief Complaints: * ???Annual Exam * HPI: ???Visit Narrative:?Clt presenting for routine annual, not due for PAP today. Sexually active with AMAB partner, denies change in partner since last tested, declines STI screen. Due for routine mammogram, but has concerns regarding radiation exposure and prefers to hold off on imaging if CBE is normal. Clt was switched from ortho Micronor to Slynd 08/2023 d/t unwanted side effects with ortho Micronor. Has tolerated Slynd well and would like to continue. ?Reason for the visit:?annual.?Current form of control:?ocp.?Presenting Symptoms:??no sxs/concerns.?LMP:?12/10.?Last date of UPI:?12/12.?Other Notes for the Clinician:?clt is here for annual. clt last pap was in 2021 and it was NIL. clt declines testing has no new partners. clt bp was 100/68..? * ROS:?Vaginal/Breast/ Control FU:?Denies?Missed period(s).?Denies?Painful intercourse.?Denies?Painful menses.?Denies?Vaginal bleeding between periods.?Denies?Vaginal discharge/itching.? * Medical History:? * Boom Operator History:?Abnormal pap smear:?atypical squamous cell changes of undetermined significance, HPV negative.? control:?oral contraceptive pill.?Last mammogram date:?11/30/20- BIRADS 1, scattered fibroglandular density in both breasts.?Last menstrual period:?12/10.?Last pap smear date:?08/2021- NIL/HPV neg (routine screening), 07.15.2020- NIL/HPV negative (repeat cotest in 1 year), 06/2019- ASCUS/HPV negative (repeat cotest in 1 year), 01/25/2017- ASCUS/HPV neg.?Menarche: ?Age of menarche?14 ???Menstruation: ?Time between periods:?21 to 32 days apart ?Lasts:?2-7days ?Pad/tampon use per day:?4-6 ?Character of period:?with moderate pain ???Periods:?every 28 days.?Sexual activity:?currently sexually active, with men.?Sexually Transmitted Diseases (STDs):?none.?Unprotected sex in the last 5 days?:?yes.?Unprotected sex in the past 10 days?:?yes.? * OB History:?Total pregnancies:?2.?Total living children:?2.? # 1:?normal spontaneous vaginal delivery ().? # 2:?normal spontaneous vaginal delivery ().? * Surgical History:?cholecyste ctomy, rt shoulder dislocated at time of surgery. Also had recent CT showed hernia in that area 2021hernia 2023 * Hospitalization/Major Diagno stic Procedure:?childbirth - vag x 2 * Family History:?Father: bryan godinez?Mother: alive.?2 brother(s) , 2 sister(s) - healthy. 1 son(s) , 1 daughter(s) - healthy. .? sister - Hx of uteruine cancer. * Social History:?Food Access:?Food Access?The Client's current access to food is?Secure Food Access ???Housing:?Housing?The client's current living situation is:?stable housing ???Reproductive Life Plan:?Reproductive Life Plan?Do you want to have children??No, I don't want to have children ?How sure are you that you will be able to use your control method without any problems??Very sure ?People's plans change. Is it possible you or your partner could ever decide to become ??No ???Sexual History:?Sexual History?Sexual History Reviewed:?Partners, Practices, Protection/Past STIs ?Currently sexually active??Yes ?Sexually active with:?Men ?Number of male partners?1 ?Your sexual activities include:?vaginal intercourse ?Do you use condoms??No ?Date of last unprotected intercourse:?12/13/2023 ?Number of partners in past 3 months:?1 ?Number of partners in past year:?1 ?Does your partner(s) currently have any STIs??No ???HIV Risk Assessment:?Additional Questions?Is an HIV Risk Assessment being conducted??Yes ?Have you been tested for HIV before??Yes ???PrEP for HIV:?PrEP for HIV?Is the client interested in beginning/continuing PrEP for HIV??No ???Relationships:?Relationships?Has the client experienced any of the following:?Client has never experienced harmful relationships ???Human Trafficking:?Human Trafficking?Experienced:?No ???Tobacco Use:?Tobacco Use?Do you/have you used tobacco??No ?Tobacco Smoking Status?Never smoker ???Drugs/Alcohol:?Drug/Alcohol Use?Do you or have you used drugs??No ?Do you or have you used alcohol??No ???Counseling Provided:?Counseling Provided?Please indicate the length of time, in minutes, that counseling was provided.?5 ?Counseling Was Provided By:mari * Medications:?TakingSlynd 4 M G Tablet 1 tablet Orally Once a day Taking Slynd 4 MG Tablet 1 tablet Orally Once a day Not-Taking/PRNFlexeril Not-Taking/PRN Flexeril DiscontinuedNorethindrone 0.35 MG Tablet TAKE 1 TABLET BY MOUTH EVERY DAY FOR 28 DAYS Orally Once a day Medication List reviewed and reconciled with the patientDiscontinued Norethindrone 0.35 MG Tablet TAKE 1 TABLET BY MOUTH EVERY DAY FOR 28 DAYS Orally Once a day Medication List reviewed and reconciled with the patient * Allergies:?N.K.D.A.no[Allerg ies Verified] Objective: * Vitals:?BP:100/68mm Hg, Ht: 5'2 , Wt:143lbs, BMI:26.15Index, Ht-cm: 157.48, Wt- k.86. * Examination: ???General Exam: ?CONSTITUTIONAL:?General Appearance:?alert, in no acute distress, normal, well nourished ?NECK/THYROID:?Inspection/Palpation:?normal ?Thyroid:?normal size and shape ?RESPIRATORY:?Auscultation:?clear to auscultation bilaterally ?Respiratory Effort:?normal ?CARDIOVASCULAR:?Auscultation:?regular rate and rhythm ?BREAST, Right:?Inspection/Palpation:?no discharge, no masses present, no nipple retraction, no skin changes, no skin dimpling, no tenderness, no lymphadenopathy, no axillary mass, no axillary tenderness ?BREAST, Left:?Inspection/Palpation:?no discharge, no masses present, no nipple retraction, no skin changes, no skin dimpling, no tenderness, no lymphadenopathy, no axillary mass, no axillary tenderness ?GASTROINTESTINAL:?Abdomen:?no masses, nontender, nondistended ?Liver and Spleen:?no hepatomegaly present ?SKIN:?Skin:?normal ?NEURO/PSYCH:?Orientation:?time , place, person ?Mood/Affect:?normal??? Assessment: * Assessment: 1.?Encounter for gynecologic al examination (general) (routine) without abnormal findings - Z01.419 (Primary)?2.?Encounter for surveillance of contraceptive pills - Z30.41? Plan: * Treatment: 2.?Encounter for surveillanc e of contraceptive pills? Continue Slynd Tablet, 4 MG, 1 tablet, Orally, Once a day, 84 days, 84 Tablet, Refills 4.?? Notes: No CI to continue with Slynd. Refill rx sent x 12 months. RTC if any unwanted side effects or issue?? 3.?Others? Notes: Discussed STI risks, screening, and safe sex?? * Procedure Codes:? * Follow Up:?1 Year * Billing Information: * Visit Code:? 88102 Existing Preventative - Age 40-64 (IN USE). * Procedure Codes:? * Sign off status: Completed true * Provider:?Bhumika Mccall NP Date:? 024 Generated for Peggy combs/Rashaun/eTransmitting on:?09/02/2024 05:38 PM EDT History and Physical Notes * HPI (History of Present Illness) Category Sub-Category Detail Notes Category Not es Visit Narrative Reason for the visit: annual Current form of control: ocp Presenting Symptoms: no sxs/concerns Other Notes for the Clinician: clt is he re for annual. clt last pap was in 2021 and it was NIL. clt declines testing has no new partners. clt bp was 100/68. LMP: 12/10 Last date of UPI: 12/12 Examination Category Sub-Category Detail Notes Category Not es General Exam CONSTITUTIONAL: General Appearan ce:: alert, in no acute distress, normal, well nourished NECK/THYROID: Inspection/Palpation:: normal Thyroid:: normal size and shape RESPIRATORY: Auscultation:: clear to ausculta tion bilaterally Respiratory Effort:: normal CARDIOVASCULAR: Auscultation:: regular rate and rhythm GASTROINTESTINAL: Abdomen:: no masses, nontender , nondistended Liver and Spleen:: no hepatomegaly prese nt SKIN: Skin:: normal NEURO/PSYCH: Orientation:: time , place, pers on Mood/Affect:: normal BREAST, Right: Inspection/Palpation :: no discharge, no masses present, no nipple retraction, no skin changes, no skin dimpling, no tenderness, no lymphadenopathy, no axillary mass, no axillary tenderness BREAST, Left: Inspection/Palpation :: no discharge, no masses present, no nipple retraction, no skin changes, no skin dimpling, no tenderness, no lymphadenopathy, no axillary mass, no axillary tenderness
--- OUTSIDE RECORDS SUMMARY | 2024-09-02 17:39 | XMS_ITS | Patient Health Record ---
Author Organization [facility] Address [address] [place] [phone] Care Team Providers Care Gas Line Repairer Name Role Phone MACKENZIE BILLY Unavailable [phone] Allergies No Known Allergies Reason For Referral No Information Medications Medication SIG (Take, Route, Fr equency, Duration) Notes Start Date End Date Status Flexeril Not-Taking Slynd 4 MG 1 tablet Orally Once a day for 84 days 08/07/2023 Active Social History Sex Assigned At : Social History Observation Description Sex Assigned At Female Problems Problem Type SNOMED Code ICD Code Onset Dates Problem Status W/U Status Risk Notes Problem Irregular menstruation (19565579) Irregular menstruation, unspecified (N92.6) Active confirmed Vital Signs Blood pressure diastolic 68 mm Hg 12/17/2023 Height 5'2 in 12/17/2023 Blood pressure systolic 100 mm Hg 12/17/2023 Weight 143 lbs 12/17/2023 BMI 26.15 kg/m2 12/17/2023 Encounters Encounter Location Date Provider Diagnosis [address] [phone] 12/17/2023 MACKENZIE BILLY Encounter for gynecological examination (general) (routine) without [...] screening, and safe sex Plan Of Treatment No Information Insurance Providers Payer Name Payer Address Payer Phone Subscriber Number Group Number Insured Name Patient Relationship to Insured Coverage Start Date Coverage End Date [place] MED[place] ATT CLAIMS [address] [place] [address] [id number] Romelia Wilkins Self - patient is the insured Medical (General) History Medical History History ICD Code UTI VVC ? DIV Degenerative disc- chronic back pain, an d then back injury at work 07/2018 Melasma switched from CHC's to POP's ?arthritis Vertigo Abnormal PAP Stones, had gallbladder removed 2021 Surgical History Surgery Date(Month/Year) cholecystectomy, rt shoulder dislocated at time of surgery. Also had recent CT showed hernia in that area 2021 hernia 2023 Hospitalization History Reason Date(Month/Year) childbirth - vag x 2
--- OUTSIDE RECORDS SUMMARY | 2024-09-02 17:39 | XMS_ITS ---
Author Organization [facility] Address [address] [place] [phone] Care Team Providers Care Fiber Analyst Name Role Phone BHUMIKA MCCALL Unavailable [phone] REASON FOR VISIT Menses concerns Social History Sex Assigned At : Social History Observation Description Sex Assigned At Female Encounters Encounter Location Date Provider Diagnosis [address] [place], [place] [phone] 07/08/2024 BHUMIKA MCCALL Plan Of Treatment No Information Progress Notes * Romelia HAIRSTONDOB:08/1979 (44 yo F)Acc No.[id number]:07/08/2024 Progress Notes Patient:?JOHNY RONORRNarcisa Thorpe sa Provider:?Bhumika Mccall NP :1980???Age:44 Y???Sex:Female D ate:07/08/2024 Address:[address] [place] [phone] Subjective: * Chief Complaints: * ???1. Menses concerns. * Medical History:? Objective: * Vitals:? Assessment: Plan: * Treatment: * Billing Information: * Visit Code:? * Procedure Codes:? * Electronic signature of TRUPTI MCCALL NP on 09/02/2024 at 05:39 PM EDT Sign off status: Pending * Provider:?Bhumika Mccall NP Date:?02/04/2 025 Generated for Peggy combs/Rashaun/Diaz on:?09/02/2024 05:39 PM EDT
--- OUTSIDE RECORDS SUMMARY | 2024-09-02 17:39 | XMS_ITS ---
Author Organization [facility] Address [address] [place] [phone] Care Team Providers Care Saw Edge Fuser Circular Name Role Phone BHUMIKA MCCALL Unavailable [phone] REASON FOR VISIT Annual Exam Social History Sex Assigned At : Social History Observation Description Sex Assigned At Female Encounters Encounter Location Date Provider Diagnosis [facility] [place], [place] [phone] 11/06/2023 BHUMIKA MCCALL Plan Of Treatment No Information Progress Notes * Romelia HAIRSTONDOB:08/1979 (44 yo F)Acc No.[id number]:11/06/2023 Progress Notes Patient:?Narcisa HAIRSTON sa Provider:?Bhumika Mccall NP :1980???Age:43 Y???Sex:Female D ate:11/06/2023 Address:[address] [place], [place] [phone] Subjective: * Chief Complaints: * ???1. Annual Exam. * Medical History:? Objective: * Vitals:? Assessment: Plan: * Treatment: * Billing Information: * Visit Code:? * Procedure Codes:? * Electronic signature of TRUPTI MCCALL NP on 09/02/2024 at 05:38 PM EDT Sign off status: Pending * Provider:Johnathan Mccall NP Date:? 024 Generated for Peggy combs/Rashaun/Diaz on:?09/02/2024 05:38 PM EDT
--- OUTSIDE RECORDS SUMMARY | 2024-09-02 17:39 | XMS_ITS | Clinical Summary ---
Author Organization [facility] ity Address [address] [place] [address] Care Team Providers Care Rail Signal Worker Name Role Phone Unavailable Primary Care Provider Unavailabl e Social History Tobacco Use Types Packs/Day Years Used Date Smoking Tobacco: Never Assessed Comments Unknown Sex and Gender Information Value Date Recorded Sex Assigned at Not on file Legal Sex Female 2:33 PM EST Gender Identity Not on file Sexual Orientation Not on file Plan of Treatment Health Maintenance Due Date Last Done Comments Breast Cancer Screening 1982 DTaP,Tdap,and Td Vaccines (1 - Tdap) 2001 Hepatitis B Vaccines (1 of 3 - 19+ 3-dose series) 2001 Cervical Cancer Screening: P ap Smear 2003 COVID-19 Vaccine (2023-2 5 season) 2024 Influenza Vaccine (#1) 2024 HIB Vaccines Aged Out No longer eligi ble based on patient's age to complete this topic HPV Vaccines Aged Out No longer eligi ble based on patient's age to complete this topic Hepatitis A Vaccines Aged Out No long er eligible based on patient's age to complete this topic IPV Vaccines Aged Out No longer eligi ble based on patient's age to complete this topic MMR Vaccines Aged Out No longer eligi ble based on patient's age to complete this topic Meningococcal ACWY Vaccine Aged Out N o longer eligible based on patient's age to complete this topic Meningococcal B Vacine Aged Out No lo nger eligible based on patient's age to complete this topic Pneumococcal Vaccine: Pediat rics (0 to 5 Years) and At-Risk Patients (6 to 64 Years) Aged Out No longer eligible b ased on patient's age to complete this topic RSV Immunization Patients Un billy 20 months Aged Out No longer eligible b ased on patient's age to complete this topic Varicella Vaccines Aged Out No longer eligible based on patient's age to complete this topic
== END 2024-09-02 16:55 | disposition home or self-care (01) ==
PROVIDERS: PCP Internal Medicine; Visit Provider Physician Assistant
DX: H04.203 Unspecified epiphora, bilateral (principal)

== ENCOUNTER → 2024-09-02 14:48 | Outpatient (BNVA) | payer SELFPAY | PROVIDERS: PCP Internal Medicine; Visit Provider Physician Assistant | DX: H04.203 Unspecified epiphora, bilateral (principal) | CPT/HCPCS: 99212 ==